=== PATIENT | female | born 1960 | race Caucasian/White ===

== ENCOUNTER 2016-12-19 10:50 | Emergency (ER) | payer OTHER ==
[~2016-12-19] VITALS: Ht 165.1 cm; Wt 108.9 kg
[~2016-12-19 10:50] MED LIST: CETI10TA22 PO; CRESTOR20 MG PO; ESTR0.5T PO; LANS30CA17 PO; LEVO137T3 PO; LOSA1TAB17 PO; MULT-208 PO; XOPENEX HFA15 GM IH
[2016-12-19 11:20] VITALS: BP 154/94
--- NOTE | 2016-12-19 12:02 | RAD ---
Exam performed: 2 views of the chest. Indication: cough, cold symptoms since last Sunday Date of Service:12/19/2016 1:39 PM . Comparison : Two-view chest from 10/02/16. Findings: PA and lateral radiographs of the chest reveal a normal cardiomediastinal contour. The lungs are clear. No pleural fluid is seen. There is scoliosis of the thoracic spine with leftward and cavity. Impression: No acute cardiopulmonary process seen.
--- NOTE | 2016-12-19 12:15 | PHYS DOC ---
Past Medical History Past Medical History: Asthma Additional Past Medical Histor: GREGORIO Past Surgical History: No Surgical History Alcohol Use: None Drug Use: None Adult General Chief Complaint Chief Complaint: MULTIPLE COMPLAINTS [facility] Patient is a 56 year old female who presents with with a week of nasal congestion, rhinorrhea, bilateral ear pressure, dry cough, chills, mild nausea, and intermittent watery diarrhea. She has been taking [id number] cough medicine and using a Neti pot without complete relief of her symptoms. She has been taking Tylenol. She has Xopenex inhaler that she has only used one time, she is otherwise taking inhaled corticosteroid as directed. She denies chest pain, abdominal pain, headache, sick contacts. Her biggest complaint is persistent dry cough. Review of Systems Review of Systems Constitutional: Denies measured fever [] Eyes: Denies change in visual acuity, redness, or eye pain [] HENT: Denies sore throat [] Respiratory: Denies shortness of breath [] Cardiovascular: No additional information not addressed in [facility] [] GI: Denies abdominal pain, vomiting, bloody stools [] : Denies dysuria or hematuria [] Musculoskeletal: Denies back pain or joint pain [] Integument: Denies rash or skin lesions [] Neurologic: Denies headache, focal weakness or sensory changes [] Endocrine: Denies polyuria or polydipsia [] Allergies Allergies Allergies Coded Allergies Type Severity Reaction Last Updated Verified aspirin Allergy Intermediate Hives 07/26/16 Yes Physical Exam Physical Exam Constitutional: Well developed, well nourished, no acute distress, non-toxic appearance. [] HENT: Normocephalic, atraumatic, bilateral TMs normal, oropharynx moist, no oral exudates, nose normal. [] Eyes: PERRLA, EOMI, conjunctiva normal, no discharge. [] Neck: Normal range of motion, no tenderness, supple, no stridor. [] Cardiovascular:Heart rate regular rhythm [] Lungs & Thorax: Bilateral breath sounds clear to auscultation. Intermittent bronchospastic cough [] Abdomen: Bowel sounds normal, soft, no tenderness. [] Skin: Warm, dry, no erythema, no rash. [] Back: No tenderness, no CVA tenderness. [] Extremities: No tenderness, ROM intact, no edema, no palpable cord. [] Neurologic: Alert and oriented X 3, normal motor function, normal sensory function, no focal deficits noted. [] Psychologic: Affect normal, judgement normal, mood normal. [] Current Patient Data Vital Signs Vital Signs Date Time Temp Pulse Resp B/P Pulse Ox O2 Delivery O2 Flow Rate FiO2 12/19/16 11:20 98.4 93 20 154/94 96 Room Air 98.4 Radiology/Procedures Radiology/Procedures Chest xray as interpreted by me with no acute cardiopulmonary disease process Course & Med Decision Making Course & Med Decision Making Pertinent Labs and Imaging studies reviewed. (See chart for details) Workup is unremarkable. Her symptoms are consistent with likely viral upper respiratory infection. She used personal Xopenex while in the department and her cough improved. Encouraged further use of inhaler to help control cough as well as use of honey. Return precautions given. She understands and agrees with plan. Dragon Disclaimer Dragon Disclaimer This electronic medical record was generated, in whole or in part, using a voice recognition dictation system. Departure Departure Impression: Primary Impression: Cough Disposition: HOME, SELF-CARE Condition: STABLE Referrals: ALIZA VILLEGAS MD (PCP) Patient Instructions: Asthma, Adult, [id number] Additional Instructions: Use your inhaler as needed for cough. Follow-up with your primary care doctor. Return for any concerns. Man ARAIZA MD Dec 19, 2016 12:15
== END 2016-12-19 12:20 | disposition home or self-care (01) ==
LOC: ER 10:50
DX: R05 Cough (principal); Z88.6 Allergy status to analgesic agent
CPT/HCPCS: 71020; 99284

== ENCOUNTER → 2017-03-21 | Outpatient (CLI) | payer OTHER ==
--- NOTE | 2017-03-21 16:42 | RAD ---
CT of the paranasal sinuses without contrast, 03/21/2017: History: Chronic sinusitis, asthma Noncontrast scans were obtained with multiplanar reconstructions produced. There is only mild mucosal thickening in the maxillary sinuses, right greater than left. There is slight associated narrowing of the ethmoid infundibulum of the right ostiomeatal complex. The left ethmoid infundibulum is widely patent. There is minimal mucosal thickening inferiorly in the right sphenoid sinus. The left sphenoid sinus, both frontal and both ethmoid sinuses are essentially clear. No free fluid is evident in the paranasal sinuses. No bony abnormality is detected. The orbital contents are unremarkable. IMPRESSION: 1. Mild mucosal thickening in both maxillary sinuses and the right sphenoid sinus. 2. The paranasal sinuses are otherwise unremarkable. PQRS Compliance Statement: One or more of the following individualized dose reduction techniques were utilized for this examination: 1. Automated exposure control 2. Adjustment of the mA and/or kV according to patient size 3. Use of iterative reconstruction technique
== END | disposition home or self-care (01) ==
LOC: CT 16:00
PROVIDERS: ATTEND Otolaryngology
DX: J32.9 Chronic sinusitis, unspecified (principal)
CPT/HCPCS: 70486

== ENCOUNTER → 2017-08-28 | Outpatient (CLI) | payer OTHER ==
[~2017-08-28] MED LIST changes: -LANS30CA17 PO; +LANS30CA66 PO; -LOSA1TAB17 PO; +LOSA1TAB22 PO
--- NOTE | 2017-08-28 16:39 | RAD ---
DATE: 08/28/17 EXAM: DIGITAL SCREEN BILAT W/CAD HISTORY: Routine screening COMPARISON: 06/05/16 This study was interpreted with the benefit of Computerized Aided Detection (CAD). TECHNIQUE: Routine CC and MLO views of both breasts are obtained FINDINGS: Breast Density: SCATTERED The breast parenchyma shows scattered fibroglandular densities. Breast parenchyma level B. . No suspicious clustered microcalcifications, focal asymmetric densities or masses are seen. Stable benign calcifications are present bilaterally IMPRESSION: Benign findings BI-RADS CATEGORY: 2 BENIGN FINDING(S) RECOMMENDED FOLLOW-UP: 12M 12 MONTH FOLLOW-UP PQRS compliance statement: Patient information was entered into a reminder system with a target due date for the next mammogram. Mammography is a sensitive method for finding small breast cancers, but it does not detect them all and is not a substitute for careful clinical examination. A negative mammogram does not negate a clinically suspicious finding and should not result in delay in biopsying a clinically suspicious abnormality. "Our facility is accredited by the [employer] Mammography Program."
== END | disposition home or self-care (01) ==
LOC: MAMMO 15:59
PROVIDERS: ATTEND Family Medicine
DX: Z12.31 Encounter for screening mammogram for malignant neoplasm of breast (principal)
CPT/HCPCS: G0202; 77067

== ENCOUNTER → 2018-02-18 | Outpatient (CLI) | payer OTHER ==
[2018-02-18 08:47] LABS: ADD MAN DIFF? NO
[2018-02-18 08:52] LABS: BASO # 0.1 x10^3/uL (0.0-0.2); BASO % 1 % (0-3); EOS # 0.1 x10^3/uL (0.0-0.7); EOS % 2 % (0-3); HEMATOCRIT 44.5 % (36.0-47.0); HEMOGLOBIN 14.8 g/dL (12.0-15.5); LYMPH # 2.4 x10^3/uL (1.0-4.8); LYMPH % 37 % (24-48); MEAN CORPUSCULAR HEMOGLOBIN 30 pg (25-35); MEAN CORPUSCULAR HGB CONC 33 g/dL (31-37); MEAN CORPUSCULAR VOLUME 89 fL (79-100); MONO # 0.5 x10^3/uL (0.0-1.1); MONO % 8 % (0-9); NEUT # 3.5 x10^3uL (1.8-7.7); NEUT % 53 % (31-73); PLATELET COUNT 195 x10^3/uL (140-400); RED BLOOD COUNT 4.98 x10^6/uL (3.50-5.40); RED CELL DISTRIBUTION WIDTH 14.9 % (11.5-14.5); WHITE BLOOD COUNT 6.6 x10^3/uL (4.0-11.0)
[2018-02-18 09:10] LABS: ALBUMIN 3.7 g/dL (3.4-5.0); ALK PHOS 83 U/L (46-116); ALT (SGPT) 29 U/L (14-59); ANION GAP 7 (6-14); AST (SGOT) 19 U/L (15-37); BLOOD UREA NITROGEN 13 mg/dL (7-20); BUN/CREATININE RATIO 14 (6-20); CALCIUM 9.9 mg/dL (8.5-10.1); CARBON DIOXIDE 31 mmol/L (21-32); CHLORIDE 106 mmol/L (98-107); CHOLESTEROL 170 mg/dL (0-200); CREATININE 0.9 mg/dL (0.6-1.0); GFR 64.1; GLUCOSE 93 mg/dL (70-99); HDLC 68 mg/dL (40-60); LDLC 80 mg/dL (0-100); MAGNESIUM 2.2 mg/dL (1.8-2.4); NON-HDL CHOLESTEROL 102 mg/dL (0-129); POTASSIUM 3.9 mmol/L (3.5-5.1); SODIUM 144 mmol/L (136-145); TOTAL BILIRUBIN 0.5 mg/dL (0.2-1.0); TOTAL PROTEIN 7.3 g/dL (6.4-8.2); TRIGLYCERIDES 111 mg/dL (0-150); VLDLC 22 mg/dL (0-40)
[2018-02-18 09:11] LABS: PREALBUMIN 27.3 mg/dL (16.0-42.0)
[2018-02-18 09:12] LABS: IRON,SERUM 74 ug/dL (50-170)
[2018-02-18 09:12] LABS: CHOLESTEROL/HDL RATIO 2.5
[2018-02-18 09:21] LABS: THYROID STIM HORMONE (TSH) 6.074 uIU/mL (0.358-3.74)
[2018-02-18 09:21] LABS: FREE T4 1.07 ng/dL (0.76-1.46)
[2018-02-18 09:46] LABS: FOLATE 20.57 ng/ml (3.2-20.0)
[2018-02-18 09:46] LABS: VITAMIN-B12 423 pg/mL (247-911)
[2018-02-19 03:14] LABS: HEMOGLOBIN A1C 5.4 % (4.8-5.6)
== END | disposition home or self-care (01) ==
LOC: LAB 08:23
DX: I10 Essential (primary) hypertension (principal); E78.5 Hyperlipidemia, unspecified; E03.9 Hypothyroidism, unspecified; G47.33 Obstructive sleep apnea (adult) (pediatric); Z98.890 Other specified postprocedural states
CPT/HCPCS: 36415; 80053; 80061; 82306; 82607; 82746; 83036; 83540; 83735; 84134; 84439; 84443; 85025

== ENCOUNTER → 2018-04-22 | Outpatient (CLI) | payer OTHER ==
[2018-04-22 08:32] LABS: FREE T4 0.95 ng/dL (0.76-1.46)
[2018-04-22 08:32] LABS: THYROID STIM HORMONE (TSH) 3.338 uIU/mL (0.358-3.74)
== END | disposition home or self-care (01) ==
LOC: LAB 07:41
DX: E03.9 Hypothyroidism, unspecified (principal); E78.5 Hyperlipidemia, unspecified; I10 Essential (primary) hypertension; J32.9 Chronic sinusitis, unspecified; K21.9 Gastro-esophageal reflux disease without esophagitis
CPT/HCPCS: 36415; 84439; 84443

== ENCOUNTER 2018-08-08 16:35 | Emergency (ER) | payer OTHER | END 2018-08-08 17:04 | disposition left against medical advice (07) | LOC: ER 16:35 | DX: R42 Dizziness and giddiness (principal); Z53.21 Procedure and treatment not carried out due to patient leaving prior to being seen by health care provider | CPT/HCPCS: 82962 ==

== ENCOUNTER → 2018-09-20 | Outpatient (CLI) | payer OTHER ==
--- NOTE | 2018-09-20 15:50 | RAD ---
DATE: 09/20/2018 EXAM: MAMMO BRANDEN SCREENING BILATERAL HISTORY: Routine screening COMPARISON: 08/28/2017 This study was interpreted with the benefit of Computerized Aided Detection (CAD). Breast Density: SCATTERED The breast parenchyma shows scattered fibroglandular densities. Breast parenchyma level B. FINDINGS: 2-D and 3-D tomosynthesis imaging was performed in CC and MLO projections. No new or enlarging breast densities are seen. Scattered microcalcifications in both breasts appear stable. IMPRESSION: There is no mammographic evidence of malignancy in either breast. BI-RADS CATEGORY: 2 BENIGN FINDING(S) RECOMMENDED FOLLOW-UP: 12M 12 MONTH FOLLOW-UP PQRS compliance statement: Patient information was entered into a reminder system with a target due date for the next mammogram. Mammography is a sensitive method for finding small breast cancers, but it does not detect them all and is not a substitute for careful clinical examination. A negative mammogram does not negate a clinically suspicious finding and should not result in delay in biopsying a clinically suspicious abnormality. "Our facility is accredited by the [employer] Mammography [employer]."
== END | disposition home or self-care (01) ==
LOC: MAMMO 13:57
PROVIDERS: ATTEND Hospitalist
DX: Z12.31 Encounter for screening mammogram for malignant neoplasm of breast (principal)
CPT/HCPCS: 77063; 77067

== ENCOUNTER → 2019-01-03 | Outpatient (CLI) | payer OTHER ==
[2019-01-03 07:45] LABS: BASO % 1 % (0-3); EOS # 0.1 x10^3/uL (0.0-0.7); EOS % 2 % (0-3); HEMATOCRIT 43.1 % (36.0-47.0); HEMOGLOBIN 13.9 g/dL (12.0-15.5); LYMPH # 1.8 x10^3/uL (1.0-4.8); LYMPH % 35 % (24-48); MEAN CORPUSCULAR HEMOGLOBIN 29 pg (25-35); MEAN CORPUSCULAR HGB CONC 32 g/dL (31-37); MEAN CORPUSCULAR VOLUME 89 fL (79-100); MONO # 0.5 x10^3/uL (0.0-1.1); MONO % 10 % (0-9); NEUT # 2.6 x10^3uL (1.8-7.7); NEUT % 52 % (31-73); PLATELET COUNT 197 x10^3/uL (140-400); RED BLOOD COUNT 4.85 x10^6/uL (3.50-5.40); RED CELL DISTRIBUTION WIDTH 14.1 % (11.5-14.5)
[2019-01-03 08:10] LABS: ALBUMIN 3.6 g/dL (3.4-5.0); ALBUMIN/GLOBULIN RATIO 1.1 (1.0-1.7); CALCIUM 9.2 mg/dL (8.5-10.1); CREATININE 0.8 mg/dL (0.6-1.0); GFR 73.2; TOTAL BILIRUBIN 0.4 mg/dL (0.2-1.0)
[2019-01-03 08:12] LABS: CHOLESTEROL/HDL RATIO 3.4
[2019-01-03 08:15] LABS: FREE T4 1.1 ng/dL (0.76-1.46); THYROID STIM HORMONE (TSH) 0.783 uIU/mL (0.358-3.74)
[2019-01-03 22:09] LABS: HEMOGLOBIN A1C 5.5 % (4.8-5.6)
== END | disposition home or self-care (01) ==
LOC: LAB 07:15
PROVIDERS: ATTEND Hospitalist
DX: E03.9 Hypothyroidism, unspecified (principal); I10 Essential (primary) hypertension; E78.5 Hyperlipidemia, unspecified; E55.9 Vitamin D deficiency, unspecified; Z98.890 Other specified postprocedural states
CPT/HCPCS: 36415; 80053; 80061; 82306; 82607; 83036; 84439; 84443; 85025

== ENCOUNTER 2019-04-09 23:31 | Emergency (ER) | payer OTHER ==
[~2019-04-09] VITALS: Ht 165.1 cm; Wt 74.8 kg
[2019-04-10 00:13] LABS: BASO % 1 % (0-3); EOS # 0.1 x10^3/uL (0.0-0.7); EOS % 2 % (0-3); HEMATOCRIT 42.1 % (36.0-47.0); HEMOGLOBIN 14.1 g/dL (12.0-15.5); LYMPH # 1.9 x10^3/uL (1.0-4.8); LYMPH % 32 % (24-48); MEAN CORPUSCULAR HEMOGLOBIN 30 pg (25-35); MEAN CORPUSCULAR HGB CONC 33 g/dL (31-37); MEAN CORPUSCULAR VOLUME 90 fL (79-100); MONO # 0.6 x10^3/uL (0.0-1.1); MONO % 11 % (0-9); NEUT # 3.4 x10^3uL (1.8-7.7); NEUT % 55 % (31-73); PLATELET COUNT 219 x10^3/uL (140-400); RED BLOOD COUNT 4.69 x10^6/uL (3.50-5.40); RED CELL DISTRIBUTION WIDTH 13.9 % (11.5-14.5); WHITE BLOOD COUNT 6.1 x10^3/uL (4.0-11.0)
[2019-04-10] MEDS: ONDANSETRON PF 4 MG/2 ML VIAL. IV ONE (00:16)
[2019-04-10] MEDS: IV NORMAL SALINE 1000ML BAG 1,000 ML IV SCH (00:16)
[2019-04-10] MEDS: KETOROLAC 15 MG/ML VIAL. IV ONE (00:17)
[2019-04-10 00:21] LABS: CALCIUM 9.3 mg/dL (8.5-10.1); CREATININE 0.7 mg/dL (0.6-1.0); GFR 85.4; POTASSIUM 4.6 mmol/L (3.5-5.1)
[2019-04-10 00:27] LABS: ALBUMIN 3.8 g/dL (3.4-5.0); ALBUMIN/GLOBULIN RATIO 1.3 (1.0-1.7); TOTAL BILIRUBIN 0.3 mg/dL (0.2-1.0); TOTAL PROTEIN 6.7 g/dL (6.4-8.2)
--- NOTE | 2019-04-10 01:21 | RAD ---
Ultrasound of the abdomen limited. HISTORY: Right upper quadrant pain Ultrasound was used to evaluate the gallbladder, liver and right upper quadrant. Mid body of the pancreas appear normal, portions of the head and tail of the pancreas were obscured by bowel gas. Vena cava at the liver is unremarkable. Aorta is normal in appearance. Liver is within normal limits in size and appearance. Gallbladder was normal without gallstones or gallbladder wall thickening. Right kidney was 9.8 cm in length without a mass or hydronephrosis. Common duct was normal measuring 4 mm. IMPRESSION: 1. Limited evaluation of pancreas. 2. No gallstones noted. 3. Bile duct normal in size. 4. No focal liver lesion noted. Electronically signed by: Ozzie Arriaga MD (04/10/2019 1:18 AM) [facility]
[2019-04-10] MEDS ORDERED: TRAM50TA PO (02:24)
[2019-04-10] MEDS ORDERED: ONDA4TAB7 PO (02:24)
--- NOTE | 2019-04-10 02:24 | PHYS DOC ---
Past Medical History Past Medical History: Asthma Additional Past Medical Histor: GREGORIO Past Surgical History: No Surgical History Alcohol Use: None Drug Use: None Adult General Chief Complaint Chief Complaint: ABDOMINAL PAIN HPI HPI Patient is a 58-year-old female who presents with complaint of epigastric and right upper abdominal pain with nausea that started a few hours ago. Patient states that she was eating some chips and salsa and pain had developed shortly thereafter. She states that she had a similar episode a couple of weeks ago when she had eaten some ice cream at the hospital. She states that the pain radiates straight through to her back. She rates pain at a 7 out of 10. She states that nothing is improving the pain. She states the pain is worsened with movement and with palpation of the area.[] Review of Systems Review of Systems Constitutional: Denies fever or chills [] Respiratory: Denies cough or shortness of breath [] Cardiovascular: No additional information not addressed in HPI [] GI: Complains of abdominal pain with nausea. Denies vomiting or diarrhea [] Musculoskeletal: Mcclure of right-sided back pain [] All other systems were reviewed and found to be within normal limits, except as documented in this note. Current Medications Current Medications Current Medications Medications (Trade) Dose Ordered Sig/Johnathon Start Time Stop Time Status Last Admin Dose Admin Ketorolac Tromethamine (Toradol 15mg Vial) 15 mg 1X ONCE 04/10/19 00:30 04/10/19 00:31 DC 04/10/19 00:17 15 MG Ondansetron HCl (Zofran) 4 mg 1X ONCE 04/10/19 00:30 04/10/19 00:31 DC 04/10/19 00:16 4 MG Sodium Chloride 1,000 ml @ 100 mls/hr Q10H 04/10/19 00:30 04/10/19 02:39 DC 04/10/19 00:16 100 MLS/HR Tramadol HCl (Ultram) 50 mg 1X ONCE 04/10/19 03:00 04/10/19 03:00 DC Allergies Allergies Allergies Coded Allergies Type Severity Reaction Last Updated Verified aspirin Allergy Intermediate Hives 07/26/16 Yes Physical Exam Physical Exam Constitutional: Well developed, well nourished, no acute distress, non-toxic appearance. [] HENT: Normocephalic, atraumatic, bilateral external ears normal, oropharynx moist, no oral exudates, nose normal. [] Eyes: PERRLA, EOMI, conjunctiva normal, no discharge. [] Neck: Normal range of motion, no tenderness, supple, no stridor. [] Cardiovascular: Regular rate and rhythm[] Lungs & Thorax: Bilateral breath sounds clear to auscultation [] Abdomen: Bowel sounds normal, soft, with moderate right upper quadrant tenderness. [] Skin: Warm, dry, no erythema, no rash. [] Extremities: No tenderness, no cyanosis, no clubbing, ROM intact. [] Neurologic: Alert and oriented X 3, normal motor function, normal sensory function, no focal deficits noted. [] Current Patient Data Vital Signs Vital Signs Date Time Temp Pulse Resp B/P (MAP) Pulse Ox O2 Delivery O2 Flow Rate FiO2 04/10/19 02:38 77 20 152/74 (100) 98 04/09/19 23:45 97.9 Nasal Cannula 97.9 Lab Values Laboratory Tests Test 04/10/19 00:07 White Blood Count 6.1 x10^3/uL (4.0-11.0) Red Blood Count 4.69 x10^6/uL (3.50-5.40) Hemoglobin 14.1 g/dL (12.0-15.5) Hematocrit 42.1 % (36.0-47.0) Mean Corpuscular Volume 90 fL (79-100) Mean Corpuscular Hemoglobin 30 pg (25-35) Mean Corpuscular Hemoglobin Concent 33 g/dL (31-37) Red Cell Distribution Width 13.9 % (11.5-14.5) Platelet Count 219 x10^3/uL (140-400) Neutrophils (%) (Auto) 55 % (31-73) Lymphocytes (%) (Auto) 32 % (24-48) Monocytes (%) (Auto) 11 % (0-9) H Eosinophils (%) (Auto) 2 % (0-3) Basophils (%) (Auto) 1 % (0-3) Neutrophils # (Auto) 3.4 x10^3uL (1.8-7.7) Lymphocytes # (Auto) 1.9 x10^3/uL (1.0-4.8) Monocytes # (Auto) 0.6 x10^3/uL (0.0-1.1) Eosinophils # (Auto) 0.1 x10^3/uL (0.0-0.7) Basophils # (Auto) 0.0 x10^3/uL (0.0-0.2) Sodium Level 144 mmol/L (136-145) Potassium Level 4.6 mmol/L (3.5-5.1) Chloride Level 107 mmol/L (98-107) Carbon Dioxide Level 25 mmol/L (21-32) Anion Gap 12 (6-14) Blood Urea Nitrogen 20 mg/dL (7-20) Creatinine 0.7 mg/dL (0.6-1.0) Estimated GFR (Cockcroft-Gault) 85.4 BUN/Creatinine Ratio 29 (6-20) H Glucose Level 121 mg/dL (70-99) H Calcium Level 9.3 mg/dL (8.5-10.1) Total Bilirubin 0.3 mg/dL (0.2-1.0) Aspartate Amino Transferase (AST) 22 U/L (15-37) Alanine Aminotransferase (ALT) 21 U/L (14-59) Alkaline Phosphatase 80 U/L (46-116) Total Protein 6.7 g/dL (6.4-8.2) Albumin 3.8 g/dL (3.4-5.0) Albumin/Globulin Ratio 1.3 (1.0-1.7) Lipase 161 U/L (73-393) Laboratory Tests 04/10/19 00:07 Laboratory Tests 04/10/19 00:07 EKG EKG [] Radiology/Procedures Radiology/Procedures [] Impressions: PROCEDURE: ABDOMEN LTD Ultrasound of the abdomen limited. HISTORY: Right upper quadrant pain Ultrasound was used to evaluate the gallbladder, liver and right upper quadrant. Mid body of the pancreas appear normal, portions of the head and tail of the pancreas were obscured by bowel gas. Vena cava at the liver is unremarkable. Aorta is normal in appearance. Liver is within normal limits in size and appearance. Gallbladder was normal without gallstones or gallbladder wall thickening. Right kidney was 9.8 cm in length without a mass or hydronephrosis. Common duct was normal measuring 4 mm. IMPRESSION: 1. Limited evaluation of pancreas. 2. No gallstones noted. 3. Bile duct normal in size. 4. No focal liver lesion noted. Electronically signed by: Ozzie Arriaga MD (04/10/2019 1:18 AM) [facility] Course & Med Decision Making Course & Med Decision Making Pertinent Labs and Imaging studies reviewed. (See chart for details) [] Dragon Disclaimer Dragon Disclaimer This electronic medical record was generated, in whole or in part, using a voice recognition dictation system. Departure Departure Impression: Primary Impression: RUQ abdominal pain Disposition: HOME, SELF-CARE Condition: STABLE Referrals: HAMIDA THOMAS MD (PCP) Patient Instructions: Abdominal Pain Scripts Tramadol Hcl (TRAMADOL HCL) 50 Mg Tablet 50 MG PO Q6HRS PRN for PAIN, #10 TAB Prov: ROSETTE GOODE Jr. DO 04/10/19 Ondansetron Hcl (ZOFRAN) 4 Mg Tablet 4 MG PO PRN TID PRN for NAUSEA, #15 nausea/vomiting Prov: ROSETTE GOODE Jr. DO 04/10/19 ROSETTE GOODE Jr. DO April 10, 2019 02:24
[2019-04-10 02:38] VITALS: BP 152/74
[2019-04-10] MEDS ORDERED: traMADol 50 MG TABLET PO ONE (03:00)
== END 2019-04-10 02:39 | disposition home or self-care (01) ==
LOC: ER 23:31
DX: R10.11 Right upper quadrant pain (principal); R11.0 Nausea; M54.9 Dorsalgia, unspecified; J45.909 Unspecified asthma, uncomplicated; G47.33 Obstructive sleep apnea (adult) (pediatric); Z88.6 Allergy status to analgesic agent
CPT/HCPCS: 36415; 76705; 80053; 83690; 85025; 96374; 96375; 99285; J1885; J2405; J7030

== ENCOUNTER → 2019-10-02 | Outpatient (CLI) | payer OTHER ==
[~2019-10-02] MED LIST changes: +ONDA4TAB7 PO; +TRAM50TA PO
--- NOTE | 2019-10-03 15:36 | RAD ---
DATE: 10/02/2019 EXAM: MAMMO BRANDEN SCREENING BILATERAL HISTORY: Routine screening COMPARISON: 08/28/2017, 06/05/2016, 09/20/2018 mammographic exams This study was interpreted with the benefit of Computerized Aided Detection (CAD). Breast Density: HETERO The breast parenchyma is heterogenously dense, which could reduce sensitivity of mammography. Breast parenchyma level C. FINDINGS: Benign calcifications are present. No suspicious calcifications or distortion. IMPRESSION: Stable BI-RADS CATEGORY: 2 BENIGN FINDING(S) RECOMMENDED FOLLOW-UP: 12M 12 MONTH FOLLOW-UP PQRS compliance statement: Patient information was entered into a reminder system with a target due date for the next mammogram. Mammography is a sensitive method for finding small breast cancers, but it does not detect them all and is not a substitute for careful clinical examination. A negative mammogram does not negate a clinically suspicious finding and should not result in delay in biopsying a clinically suspicious abnormality. "Our facility is accredited by the [employer] Mammography Program."
== END | disposition home or self-care (01) ==
LOC: MAMMO 14:24
PROVIDERS: ATTEND Hospitalist
DX: Z12.31 Encounter for screening mammogram for malignant neoplasm of breast (principal); N64.89 Other specified disorders of breast
CPT/HCPCS: 77063; 77067

== ENCOUNTER 2020-04-18 09:48 | Emergency (ER) | payer OTHER ==
[~2020-04-18] VITALS: Ht 162.6 cm; Wt 70.4 kg
[~2020-04-18 09:48] MED LIST changes: +ALBU2.5V8 IH; -CETI10TA22 PO; +CETI10TA24 PO; +DOXY100T PO
[2020-04-18 09:55] VITALS: BP 150/85
[2020-04-18] MEDS ORDERED: PRED20TA PO (10:08)
--- NOTE | 2020-04-18 10:08 | PHYS DOC ---
Past Medical History Past Medical History: Asthma, Bronchitis, Hypothyroid Additional Past Medical Histor: GREGORIO Past Surgical History: Cervical Fusion, Other Smoking Status: Never Smoker Alcohol Use: None Drug Use: None General Adult EDM: Chief Complaint: SKIN RASH/ABSCESS HPI: HPI: Patient is a 59 year old female presenting to the ED with a chief complaint of possible insect bite. Patient states that she had the symptoms for the last 2 to 3 days. She has an area of irritation and redness just lateral to her left eye. She states that she used topical cortisone cream as well as Benadryl but the symptoms are not resolving. Patient states that she has a to attend tomorrow and so she cannot see her PCP. Patient denies fever, chills, nausea, vomiting, shortness of breath, chest pain. Review of Systems: Review of Systems: Constitutional: Denies fever or chills. [] Respiratory: Denies cough or shortness of breath. [] Cardiovascular: Denies chest pain Integument: Rash present on the face Heart Score: Risk Factors: Risk Factors: DM, Current or recent (<one month) smoker, HTN, HLP, family history of CAD, obesity. Risk Scores: Score 0 - 3: 2.5% MACE over next 6 weeks - Discharge Home Score 4 - 6: 20.3% MACE over next 6 weeks - Admit for Clinical Observation Score 7 - 10: 72.7% MACE over next 6 weeks - Early Invasive Strategies Allergies: Allergies: Allergies Coded Allergies Type Severity Reaction Last Updated Verified aspirin Allergy Intermediate Hives 07/26/16 Yes Physical Exam: PE: Constitutional: Well developed, well nourished, no acute distress, non-toxic appearance. [] HENT: Normocephalic, atraumatic Eyes: EOMI Neck: Normal range of motion Respiratory: No respiratory distress Extremities: ROM intact Skin: Small dime size erythema area present lateral to the left eye. There is mild swelling in the left infraorbital region. Neurologic: Alert and oriented X 3 EKG: EKG: [] Radiology/Procedures: Radiology/Procedures: [] Course & Med Decision Making: Course & Med Decision Making Most likely insect bite Patient will be treated with oral steroids. Discussed plan of care with patient. Patient is instructed to follow up with PCP in one to 2 days. Appropriate discharge instructions given to patient to return to the ED or to seek immediate medical evaluation. Patient is instructed to return to the ED if symptoms worsen or if any concerns. Dragon Disclaimer: Dragon Disclaimer: This electronic medical record was generated, in whole or in part, using a voice recognition dictation system. Departure Departure Impression: Primary Impression: Insect bite Additional Impression: Dermatitis Disposition: HOME, SELF-CARE Condition: STABLE Referrals: HAMIDA THOMAS MD (PCP) Patient Instructions: Insect Bite Additional Instructions: Please return to the ED if symptoms worsen or if any concerns. Please follow-up with your PCP in 1 to 2 days. Scripts Prednisone (PREDNISONE) 20 Mg Tablet 2 TAB PO DAILY for 5 Days, #10 TAB Prov: KENNY LOPEZ DO 04/18/20 KENNY LOPEZ DO April 18, 2020 10:08
== END 2020-04-18 10:25 | disposition home or self-care (01) ==
LOC: ER 09:48
DX: S00.262A Insect bite (nonvenomous) of left eyelid and periocular area, initial encounter (principal); L30.9 Dermatitis, unspecified; J45.909 Unspecified asthma, uncomplicated; E03.9 Hypothyroidism, unspecified; Z88.6 Allergy status to analgesic agent; W57.XXXA Bitten or stung by nonvenomous insect and other nonvenomous arthropods, initial encounter; Y93.89 Activity, other specified; Y92.89 Other specified places as the place of occurrence of the external cause; Y99.8 Other external cause status
CPT/HCPCS: 99283

== ENCOUNTER → 2020-07-11 | Outpatient (CLI) | payer OTHER ==
[~2020-07-11] MED LIST changes: +PRED20TA PO
== END | disposition home or self-care (01) ==
LOC: LAB 19:13
PROVIDERS: ATTEND Internal Medicine Pulmonary Disease
DX: J45.909 Unspecified asthma, uncomplicated (principal); R50.9 Fever, unspecified; R06.02 Shortness of breath; R51 Headache; Z20.828 Contact with and (suspected) exposure to other viral communicable diseases
CPT/HCPCS: 87426; U0003

== ENCOUNTER → 2020-09-28 | Outpatient (CLI) | payer OTHER ==
[~2020-09-28] MED LIST changes: -CETI10TA24 PO; +CETI10TA74 PO
--- NOTE | 2020-09-28 16:21 | RAD ---
DATE: 09/28/2020 2:03 PM EXAM: MAMMO BRANDEN SCREENING BILATERAL HISTORY: Screening COMPARISON: 10/02/2019, 09/20/2018 Bilateral CC and MLO views of the breasts were performed. Bilateral breast tomosynthesis was performed in CC and MLO projections. This study was interpreted with the benefit of Computerized Aided Detection (CAD). FINDINGS: Breast Density: HETERO The breast parenchyma Is heterogeneously dense, which could reduce sensitivity of mammography. Breast parenchyma level C Negative left mammogram. Calcifications in the anterior superior right breast cannot be confirmed stable and need additional imaging with magnification views in the CC and true lateral projections with possible correlate of ultrasound given dense breast tissue. IMPRESSION: Right breast indeterminate microcalcifications, findings for which additional imaging is advised. BI-RADS CATEGORY: 0 INCOMPLETE: NEEDS ADDITIONAL IMAGING EVALUATION AND/OR PRIOR MAMMOGRAMS FOR COMPARISON. RECOMMENDED FOLLOW-UP: ADD ADDITIONAL IMAGING The patient will be contacted to return for additional imaging and a supplemental report will follow. PQRS compliance statement: Patient information was entered into a reminder system with a target due date for the next mammogram. Mammography is a sensitive method for finding small breast cancers, but it does not detect them all and is not a substitute for careful clinical examination. A negative mammogram does not negate a clinically suspicious finding and should not result in delay in biopsying a clinically suspicious abnormality. "Our facility is accredited by the [employer] Mammography Program."
== END ==
LOC: MAMMO 13:59
PROVIDERS: ATTEND Obstetrics & Gynecology
DX: Z12.31 Encounter for screening mammogram for malignant neoplasm of breast (principal); N64.89 Other specified disorders of breast
CPT/HCPCS: 77063; 77067

== ENCOUNTER → 2020-10-05 | Outpatient (CLI) | payer OTHER ==
--- NOTE | 2020-10-05 15:04 | RAD ---
DATE: 10/05/2020 1:41 PM EXAM: DIGITAL DIAGNOSTIC RT, BREAST RIGHT HISTORY: Screening recall for right breast calcifications COMPARISON: 09/28/2020 bilateral mammogram Magnification views of the right breast were obtained in the CC and MLO projections in addition to a full-field right ML view. Targeted ultrasound of the lateral right breast was also pursued. FINDINGS: Breast Density: HETERO The breast parenchyma Is heterogeneously dense, which could reduce sensitivity of mammography. Breast parenchyma level C Additional views of the right breast including magnification views show that the calcifications in the upper outer quadrant recalled from screening are mostly scattered clusters of round and punctate calcifications, some of which layer like milk of calcium, generally benign in appearance. However, one cluster of calcifications in the posterior upper outer quadrant appears associated with an asymmetry and these calcifications vary slightly in size, shape and density. These are considered mildly suspicious and stereotactic biopsy is recommended. Targeted ultrasound of the upper-outer quadrant right breast focused primarily at the 10:00 position 8.5 cm from the nipple revealed dense fibroglandular tissue with no suspicious sonographic findings. Benign right axillary lymph nodes were also noted. IMPRESSION: Suspicious right breast calcifications posteriorly and laterally. Biopsy recommended. BI-RADS CATEGORY: 4 SUSPICIOUS ABNORMALITY- BIOPSY SHOULD BE CONSIDERED RECOMMENDED FOLLOW-UP: BIO BIOPSY RECOMMENDED Discussed with patient prior to her discharge from the imaging suite. Also discussed with Dr. Edwards by telephone at 2:56 PM on 10/05/2020 PQRS compliance statement: Patient information was entered into a reminder system with a target due date for the next mammogram. Mammography is a sensitive method for finding small breast cancers, but it does not detect them all and is not a substitute for careful clinical examination. A negative mammogram does not negate a clinically suspicious finding and should not result in delay in biopsying a clinically suspicious abnormality. "Our facility is accredited by the [employer] Mammography Program."
== END ==
LOC: MAMMO 13:41
PROVIDERS: ATTEND Obstetrics & Gynecology
DX: R92.2 Inconclusive mammogram (principal)
CPT/HCPCS: 76641; 77065

== ENCOUNTER → 2020-11-04 | Outpatient (CLI) | payer OTHER ==
[~2020-11-04] MED LIST changes: +LIDOCAINE 2%/EPI 1:100,000 20 ML VIAL. INJ ONE
--- NOTE | 2020-11-04 18:05 | RAD ---
ADDENDUM #1 Pathology addendum: The specimens of the stereotactic biopsy consist of fibrocystic changes with a microcalcifications pr esent. No cytologic atypia or malignancy is seen according to the pathology report. Findings are conc ordant with imaging. Six-month follow-up diagnostic mammographic exam of the right breast is recommen ded. Electronically signed by: Woody Perea MD (11/11/2020 6:26 PM) [facility] Examination: MG DIAGNOSTICUNILAT MAMMO, MG STERO NEEDLE LOC BRST RT History: Reason: MICROCALCIFICATIONS, POST BIOPSY Comparison/Correlation: 10/05/2020 right unilateral diagnostic mammogram, 09/28/2020 screening mammog melony TECHNIQUE AND FINDINGS: The procedure and its risks and benefits were discussed with the patient. Ris ks discussed included, but were not limited to, pain, infection, bleeding and need for repeat biopsy. The patient provided verbal and written consent. The patient was placed in an upright unit and the right breast was placed in CC compression. Images w ere obtained and the lesion of concern was localized using stereotaxis. The skin overlying this regio n was then sterilely prepped and infiltrated with a 8 cc 2 % lidocaine for local anesthesia. A small skin incision was made and the biopsy device was advanced and appropriate positioning was confirmed w ith additional images. Subsequently, 6 core biopsy samples were obtained with vacuum assistance. A plain radiograph of the s pecimen was obtained, demonstrating inclusion of the lesion of interest in the calcifications. Then, a post-biospy clip was advanced to the site of biopsy using the same guidance technique. A sterile b andage was placed, and the patient was transferred to the mammography suite for craniocaudal and medi olateral oblique views. The post-biopsy mammogram demonstrates immediate post-biospy changes and a biopsy clip in expected po sition. Calcifications previously seen are no longer evident on the postbiopsy image. The patient silvina erated the procedure without difficulty and was discharged to home in stable condition with post-bios py care instructions. IMPRESSION: 1. Successful stereotactic biospy of right breast and post-biopsy clip placement. Please refer to the separate report submitted by the Department of Pathology for specimen findings. 2. Follow up mammography is recommended following resolution of immediate post-biospy changes based on pathology findings and clinical suspicion. Electronically signed by: Woody Perea MD (11/04/2020 6:03 PM) [facility]
--- NOTE | 2020-11-09 12:07 | PATHOLOGY ---
[facility] Accession Number: [id number] . 01 Material submitted: . breast - RIGHT BREAST TISSUE. Modifiers: right . 01 Clinical history: . RIGHT BREAST CALCIFICATIONS . 02 Diagnosis: "Right breast tissue", needle biopsy: - Benign breast with fibrocystic changes including stromal fibrosis, cyst formation, cystic apocrine metaplasia, usual duct hyperplasia and adenosis with microcalcifications present; no cytologic atypia or malignancy seen. (CLW:[facility] 11/08/2020) [facility] 11/08/2020 1507 Local . 02 Comment: The case is co-reviewed with Dr. Thomas Castillo. Clinical and radiographic correlation is recommended. (CLW:[facility] 11/08/2020) . 02 Diagnosis provided by: . Selam Alvarez MD, Pathologist NPI- [id number] . 03 Electronically signed: . Selam Alvarez MD, Pathologist NPI- [id number] . 01 Gross description: . The specimen is received in formalin, labeled "Francia Deleon, right breast". Received is a plastic cassette containing multiple needle cores of fibrofatty tissue measuring 2.5 x 2.0 x 0.6 cm in aggregate dimensions. The specimen is submitted entirely in cassettes A1 through A3. The cold ischemic time is 10 minutes. The total formalin fixation time is 29 hours and 15 minutes. ([facility]; 11/05/2020) [facility]/QA 11/08/2020 1505 Local . 02 Pathologist provided ICD-10: N60.11, N60.31, N60.01, N60.81, N62, N60.21 . 02 CPT . 315679 Specimen Comment: A courtesy copy of this report has been sent to [phone], [phone] Specimen Comment: [id number], Specimen Comment: Report sent to ,DR CHU / DR THOMAS Performed at: 01 [facility] [address] [id number] MD Thomas Castillo MD Phone: [phone] Performed at: 02 [facility] [address] [id number] MD Rodriguez Varela MD Phone: [phone] Performed at: 03 [facility] [address] [place], [place] [id number] MD Raman Huntley MD Phone: [phone]
== END | disposition home or self-care (01) ==
LOC: MAMMO 13:45
PROVIDERS: ATTEND Surgery
DX: R92.0 Mammographic microcalcification found on diagnostic imaging of breast (principal); N63.10 Unspecified lump in the right breast, unspecified quadrant; N60.21 Fibroadenosis of right breast; N60.81 Other benign mammary dysplasias of right breast; Z88.8 Allergy status to other drugs, medicaments and biological substances
CPT/HCPCS: 19081; 77065; 88305; C1713; J3490; 19085; 77022

== ENCOUNTER → 2020-12-16 | Day surgery (SDC) | payer OTHER ==
[~2020-12-16] MED LIST changes: -LIDOCAINE 2%/EPI 1:100,000 20 ML VIAL. INJ ONE
[2020-12-16 08:38] LABS: BASO % 1 % (0-3); EOS # 0.1 x10^3/uL (0.0-0.7); EOS % 2 % (0-3); HEMATOCRIT 43.1 % (36.0-47.0); HEMOGLOBIN 14.1 g/dL (12.0-15.5); LYMPH # 1.6 x10^3/uL (1.0-4.8); LYMPH % 33 % (24-48); MEAN CORPUSCULAR HEMOGLOBIN 29 pg (25-35); MEAN CORPUSCULAR HGB CONC 33 g/dL (31-37); MEAN CORPUSCULAR VOLUME 88 fL (79-100); MONO # 0.4 x10^3/uL (0.0-1.1); MONO % 9 % (0-9); NEUT # 2.6 x10^3/uL (1.8-7.7); NEUT % 55 % (31-73); PLATELET COUNT 189 x10^3/uL (140-400); RED BLOOD COUNT 4.92 x10^6/uL (3.50-5.40); RED CELL DISTRIBUTION WIDTH 13.7 % (11.5-14.5); WHITE BLOOD COUNT 4.7 x10^3/uL (4.0-11.0)
[2020-12-16 09:07] LABS: ALBUMIN 3.7 g/dL (3.4-5.0); ALBUMIN/GLOBULIN RATIO 1.2 (1.0-1.7); CALCIUM 9.3 mg/dL (8.5-10.1); CREATININE 0.8 mg/dL (0.6-1.0); GFR 72.7; TOTAL BILIRUBIN 0.7 mg/dL (0.2-1.0); TOTAL PROTEIN 6.8 g/dL (6.4-8.2)
[2020-12-16 09:09] LABS: CHOLESTEROL/HDL RATIO 2.7
[2020-12-16 09:17] LABS: FREE T4 1.49 ng/dL (0.76-1.46); THYROID STIM HORMONE (TSH) 1.068 uIU/mL (0.358-3.74)
[2020-12-17 00:11] LABS: HEMOGLOBIN A1C 5.7 % (4.8-5.6)
== END ==
LOC: LAB 07:58
PROVIDERS: ATTEND Hospitalist
DX: Z00.01 Encounter for general adult medical examination with abnormal findings (principal); E03.9 Hypothyroidism, unspecified; I10 Essential (primary) hypertension; D51.9 Vitamin B12 deficiency anemia, unspecified; E55.9 Vitamin D deficiency, unspecified; E66.01 Morbid (severe) obesity due to excess calories; E78.5 Hyperlipidemia, unspecified; R73.02 Impaired glucose tolerance (oral); Z98.84 Bariatric surgery status
CPT/HCPCS: 36415; 80053; 80061; 82306; 82607; 83036; 84439; 84443; 85025

== ENCOUNTER → 2021-03-03 | Outpatient (CLI) | payer OTHER ==
[~2021-03-03] MED LIST changes: +BUPIVACAINE MPF 0.25% 10 ML VIAL. ONE; +IOHEXOL 180 MG/ML 10 ML VIAL. ONE; +methylPREDNISolone ACETATE 40 MG/ML VIAL. ONE; +methylPREDNISolone ACETATE 80 MG/ML VIAL. ONE
--- NOTE | 2021-03-03 12:45 | PDOC1 ---
INITIAL PAIN CONSULT DATE OF SERVICE: DOS: DATE: 03/03/21 TIME: 12:38 CHIEF COMPLAINT: Chief Complaint: Bilateral knee joint pain HISTORY OF PRESENT ILLNESS: 60-year-old female presents with history of pain in bilateral knees for 10+ years patient has had multiple treatments over the years for her knees including physical therapy chiropractic treatment doing exercise currently and has had multiple cortisone injections as well as hyaluronidase injections in the knees without significant long-term improvement. Patient reports now the pain is worse with walking standing describes as constant changes during the day aching as well in the back of the knee as well as the medial aspect of the knee again more on the left than the right patient rates her disability rating 0-10 10 being the worst is a 5 with an responsibility social activity occupation sexual behavior and self-care 3 with life support activities and 7 with recreational activities. Patient has had knee x-rays in the past and the most recent ones are October 2019 showing mild to moderate lateral compartment predominant osteoarthritis on the left greater than right with small loose bodies bilaterally. PAST MEDICAL HISTORY: PMH: Arthritis, asthma, weight loss PREVIOUS SURGERIES: Past Surgical Hx: Tonsillectomy, hysterectomy with appendectomy, cervical fusion, right breast biopsy, gastric bypass CURRENT MEDICATIONS: Current Meds: Active Scripts Medications Dose Route/Sig Max Daily Dose Days Date Category Multi-Day Vitamins (Multivitamin) 1 Each Tablet 1 Tab PO DAILY 07/26/16 Reported Prevacid (Lansoprazole) 30 Mg Capsule.dr 30 Mg PO DAILY 07/26/16 Reported Levothyroxine Sodium 137 Mcg Tablet 137 Mcg PO DAILYAC 07/26/16 Reported ALLERGIES; Allergies: Coded Allergies: aspirin (Verified Allergy, Intermediate, Hives, 07/26/16) doxycycline (Verified Allergy, Mild, Rash, 11/03/20) FAMILY HISTORY: Family Hx: Heart disease, strokes SOCIAL HISTORY: Social Hx: Patient does not drink alcohol does not smoke not use any illegal illicit or recreational drugs is lives with her spouse lives locally in [facility] 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 PHYSICAL EXAM: VS: Blood pressure is 11/22/1968 pulse 70 respirations 18 temperature 90 point degrees Fahrenheit height is 5 foot 4 inches weight is 160 PE: PHYSICAL EXAMINATION: GENERAL: The patient is awake, alert, oriented, appropriate, very pleasant demeanor HEENT: Shows normocephalic, atraumatic. Extraocular movements are intact and symmetrical. Oral cavity: Mucous membranes moist and pink. Dentition is intact. NECK: Shows anterior throat supple without palpable lymphadenopathy noted. Swallow reflex symmetrical. CHEST: Shows normal on inspection. Breath sounds are clear bilaterally, no rales rhonchi wheezes auscultated. HEART: Shows S1, S2 clear. No murmurs auscultated. ABDOMEN: Soft, nontender, nondistended, obese. No palpable organomegaly is noted. No rebound or guarding demonstrated. BACK: Shows spine grossly in the midline. Normal-appearing cervical lordotic curvature. There is slightly increased thoracic kyphosis, some minor flattening of the lumbar lordotic curvature. The patient has good rotational motion of the lumbar spine, both laterally as well as extension and flexion without significant difficulty. No tenderness over the spinous processes, sacrum or sacroiliac regions. EXTREMITIES: Lower extremities show deep tendon reflexes 2+ in the patellar and tendo calcaneus tendons. Motor exam is 5 on a scale of 5 with right dorsiflexion, extension, quadriceps and hamstring flexion and 5/5 on the left. Peripheral pulses are 1+ posterior tibial. No peripheral edema is noted bilaterally. Lower extremities are warm and dry to touch, equal in color and appearance. Patient's knees show good range of motion bilaterally without crepitus without ratcheting. With palpation shows a moderate tenderness more over the medial collateral ligament and the lateral aspect no difficulty of the patellar tendons or pain reported. SKIN: Shows warm and dry, good turgor. No edema. No sores, rashes or bruising throughout. IMPRESSION: Impression: 60-year-old female with long history of bilateral knee joint pain left greater than right with history of osteoarthritis History of multiple interventions with success with corticosteroid over hyaluronidase Plan: Options discussed with the patient including conservative medical management continued physical therapies and vaginal techniques. Patient would like to pursue interventional techniques. We discussed intra-articular knee joint injections in the bilateral knees using fluoroscopic guidance. Risk were discussed including but not limited to bleeding infection possibility of intrava scular injection sequelae spread local anesthetic numbness side effects steroid medication exposure fluoroscopy and portals regarding pain control. Patient understands wished to proceed. Patient will return to the clinic in approximate 2 months for follow-up as scheduled was counseled as return appointment activity level and side effects to be aware of. Under sterile prep and drape patient supine position using C-arm fluoroscopic guidance bilateral knees were visualized and using 1% lidocaine over the medial aspect of the intra-articular joint was topic anesthetized using a 22-gauge Quincke needle with stylette was then entered under direct fluoroscopic guidance into the knee joint both right and left without difficulty stylet was removed 1.5 cc of contrast was injected into each knee for total of 3 cc with good spread within the knee joint itself without extravasation without uptake. At this time concentration of 3 cc 0.25 bupivacaine and 60 mg of Depo-Medrol was placed within each knee. [place] withdrawn and sterile bandages were applied. Patient tolerated the procedure well and had no complications. NORA LEONARDO MD Mar 03, 2021 12:45
--- NOTE | 2021-03-03 12:46 | PDOC4 ---
PROCEDURE Procedure Patient was consented for bilateral intra-articular knee joint injections. Risk were discussed including but not limited to bleeding infection possibility of intravascular injection sequelae spread local anesthetic numbness side effects steroid medication exposure fluoroscopy and poor results regarding pain control. Patient understands wished to proceed. Under sterile prep and drape patient supine position using C-arm fluoroscopic guidance bilateral knees were visualized and using 1% lidocaine over the medial aspect of the intra-articular joint was topic anesthetized using a 22-gauge Quincke needle with stylette was then entered under direct fluoroscopic guidance into the knee joint both right and left without difficulty stylet was removed 1.5 cc of contrast was injected into each knee for total of 3 cc with good spread within the knee joint itself without extravasation without uptake. At this time concentration of 3 cc 0.25 bupivacaine and 60 mg of Depo-Medrol was placed within each knee. [place] withdrawn and sterile bandages were applied. Patient tolerated the procedure well and had no complications. NORA LEONARDO MD Mar 03, 2021 12:46
== END | disposition home or self-care (01) ==
LOC: PNCL 10:49
PROVIDERS: ATTEND Anesthesiology
DX: M25.562 Pain in left knee (principal); M25.561 Pain in right knee; M19.90 Unspecified osteoarthritis, unspecified site; J45.909 Unspecified asthma, uncomplicated; I10 Essential (primary) hypertension; K21.9 Gastro-esophageal reflux disease without esophagitis; E03.9 Hypothyroidism, unspecified; Z90.710 Acquired absence of both cervix and uterus; Z98.890 Other specified postprocedural states; Z79.899 Other long term (current) drug therapy; Z88.1 Allergy status to other antibiotic agents; Z88.5 Allergy status to narcotic agent; Z82.49 Family history of ischemic heart disease and other diseases of the circulatory system
CPT/HCPCS: 20610; 77002; J1030; J1040; J3490; Q9965

== ENCOUNTER → 2021-05-12 | Outpatient (CLI) | payer OTHER ==
--- NOTE | 2021-05-12 14:54 | PDOC ---
Progress Note - Pain Clinic Date of Service: DOS: DATE: 05/12/21 TIME: 14:51 Diagnosis: Dx: Bilateral knee joint pain with osteoarthritis History or Present Illness: HPI: 60-year-old female returns follow-up status post bilateral knee joint injections March 03, 2021. Patient reports she did very well about 50% improvement but took a few days for the pain to decrease and is still doing very well with the injection but the pain is returning now patient reports is worse on the left side than the right worse with walking standing changing positions as she climbing stairs or steps putting all her weight on 1 knee or the other levels significantly tender bilaterally the left is more tender. Patient reports is an 8 on scale 10 is worse over the past week 8 on average 6 its least and is an 8 today patient reports a dull aching constant throbbing at times and swelling and pressure in the back of the left knee with walking. Patient reports it wakes her from sleep very rarely does not cause any loss of balance patient reports initially she was in much better with distance walking doing household activities work activities travel with greater ease and comfort. Physical Exam: VS: Blood pressure is 105/66 pulse 70 respirations 18 temperature 98.0 F weight is 164 pounds PE: PHYSICAL EXAMINATION: GENERAL: The patient is awake, alert, oriented, appropriate, very pleasant in demeanor HEENT: Shows normocephalic, atraumatic. Extraocular movements are intact and symmetrical. Oral cavity: Mucous membranes moist and pink. Dentition is intact. NECK: Shows anterior throat supple without palpable lymphadenopathy noted. Swallow reflex symmetrical. CHEST: Shows normal on inspection. Breath sounds are clear bilaterally. HEART: Shows S1, S2 clear. No murmurs auscultated. ABDOMEN: Soft, nontender, nondistended. BACK: Shows spine grossly in the midline. Normal-appearing cervical lordotic curvature. There is slightly increased thoracic kyphosis, some minor flattening of the lumbar lordotic curvature.. EXTREMITIES: Lower extremities show deep tendon reflexes 2+ in the patellar and tendo calcaneus tendons. Motor exam is 5 on a scale of 5 with right dorsiflexion, extension, quadriceps and hamstring flexion and 5/5 on the left. Peripheral pulses are 1 posterior tibial. No peripheral edema is noted bilaterally. Lower extremities are warm and dry to touch, equal in color and appearance. Patient's knees show good rotation of motion without crepitus without ratcheting bilaterally, moderate tenderness with palpation of the posterior popliteal fossa but without radiation. Right side is nontender posteriorly. SKIN: Shows warm and dry, good turgor. No edema. No sores, rashes or bruising throughout. Procedure: Procedure: Options were discussed with the patient. Patient chart reviews her current medication regimen updated current review of systems updated today as well. We will proceed with bilateral intra-articular knee joint injections today with fluoroscopic guidance. Risk were discussed including but not limited to bleeding infection possibility of intravascular injection sequelae spread local anesthetic numbness side effects steroid medication exposure to fluoroscopy and poor results regarding pain control. Patient understands and wishes to proceed. Medication Injected: Med Injected: Under sterile prep and drape patient in supine position using C-arm fluoroscopic guidance patient's bilateral knees were sterilely prepped and draped in usual fashion. Using C-arm fluoroscopy the medial aspect of the knee joint was identified and visualized and using 1% lidocaine 25-gauge needle of the area of the skin overlying the medial knee compartment was anesthetized. Using a 22- gauge quickie needle with stylette the joint was entered under direct visualization without difficulty. Stylet was removed at this time 2 cc of contrast was then injected with good spread within the knee joint itself without washout or uptake. At this time solution containing 3 cc each knee of 0.25 bupivacaine for total of 6 cc and a total of 120 mg Depo-Medrol, 60 mg per knee, were then injected. [place] were withdrawn and sterile bandages were applied. Patient tolerated procedure well and had no complications. Condition at Discharge: Condition at Discharge: Condition at discharge is stable, patient alert the procedure well and had no complications. NORA LEONARDO MD May 12, 2021 14:54
== END | disposition home or self-care (01) ==
LOC: PNCL 14:04
PROVIDERS: ATTEND Anesthesiology
DX: M17.0 Bilateral primary osteoarthritis of knee (principal); I10 Essential (primary) hypertension; J45.909 Unspecified asthma, uncomplicated; K21.9 Gastro-esophageal reflux disease without esophagitis; E03.9 Hypothyroidism, unspecified; Z90.710 Acquired absence of both cervix and uterus; Z98.890 Other specified postprocedural states; Z79.899 Other long term (current) drug therapy; Z88.1 Allergy status to other antibiotic agents; Z88.8 Allergy status to other drugs, medicaments and biological substances
CPT/HCPCS: 77002; J1030; J1040; J3490; Q9965; 20610-50

== ENCOUNTER → 2021-05-31 | Outpatient (CLI) | payer OTHER ==
[~2021-05-31] MED LIST changes: -BUPIVACAINE MPF 0.25% 10 ML VIAL. ONE; -IOHEXOL 180 MG/ML 10 ML VIAL. ONE; -methylPREDNISolone ACETATE 40 MG/ML VIAL. ONE; -methylPREDNISolone ACETATE 80 MG/ML VIAL. ONE
--- NOTE | 2021-05-31 13:55 | RAD ---
EXAM: Right breast diagnostic mammogram with tomosynthesis. HISTORY: 60-year-old female presents for follow-up evaluation status post benign right breast biopsy. TECHNIQUE: Full-field digital craniocaudal and mediolateral oblique 2D and 3D tomosynthesis images of the right breast are obtained for evaluation. Computer aided detection was applied. COMPARISON: 11/04/2020, 10/05/2020, 09/28/2020, 10/02/2019 BREAST PARENCHYMAL DENSITY: Level C - Heterogeneously dense. FINDINGS: There is a biopsy clip within the posterior 10:00 position of the right breast, consistent with the site of reported benign biopsy. There are additional calcifications within the right breast which are stable in appearance. There are stable areas of asymmetry and nodularity within the right b reast. There is no new suspicious mass, calcification or architectural distortion. IMPRESSION: 1. No new suspicious sonographic finding. 2. BI-RADS Category 2: Benign finding(s). RECOMMENDATION: Annual screening mammography in 4 months is recommended to correspond with the previo usly established bilateral screening mammography interval. If your mammogram demonstrates that you have dense breast tissue, which could hide abnormalities, and if you have other risk factors for breast cancer that have been identified, you might benefit from s upplemental screening tests that may be suggested by your ordering physician. Dense breast tissue, i n and of itself, is a relatively common condition. This information is not provided to cause undue c oncern, but rather to raise your awareness and to promote discussion with your physician regarding th e presence of other risk factors, in addition to dense breast tissue. A report of your mammography re sults will be sent to you and your physician. You should contact your physician if you have any ques tions or concerns regarding this report. Mammography is a sensitive method for finding small breast cancers, but it does not detect them all a nd is not a substitute for careful clinical examination. A negative mammogram does not negate a clin ically suspicious finding and should not result in delay in biopsying a clinically suspicious abnorma lity. PQRS compliance statement - Patient information was entered into a reminder system with a target due date for the next mammogram. "Our facility is accredited by the [employer] Mammography Program." Electronically signed by: Luana De La Fuente MD (05/31/2021 1:53 PM) [id number]
== END ==
LOC: MAMMO 13:05
PROVIDERS: ATTEND Surgery
DX: R92.1 Mammographic calcification found on diagnostic imaging of breast (principal); R92.8 Other abnormal and inconclusive findings on diagnostic imaging of breast
CPT/HCPCS: 77065; G0279; 77061

== ENCOUNTER → 2021-07-04 | Outpatient (CLI) | payer OTHER ==
[~2021-07-04] MED LIST changes: +BUPIVACAINE MPF 0.25% 10 ML VIAL. ONE; +IOHEXOL 180 MG/ML 10 ML VIAL. ONE; +methylPREDNISolone ACETATE 40 MG/ML VIAL. ONE
--- NOTE | 2021-07-04 14:37 | PDOC ---
Progress Note - Pain Clinic Date of Service: DOS: DATE: 07/04/21 TIME: 14:31 Diagnosis: Dx: Bilateral knee joint pain with primary osteoarthritis History or Present Illness: HPI: 60-year-old female returns for follow-up status post bilateral knee joint injections May 12, 2021. Patient reports about 50% improvement of the right knee but minimal improvement on the left knee patient reports that her left knee has been her main complaint is having worse time with weightbearing walking standing put all of her weight on one night and also when she is sitting with her knee in about a 90 degree angle patient reports the pain is very noticeable and when she extends it fully such as placing on ottoman or a rest she has some tingling and cramping in her toes patient reports her pain is a 9 on scale 10 is worse over the past week 7 on average 5 its least is a 7 today patient describes as aching and tight constant also pain in the posterior aspect the knee but more to the lateral aspect than the medial aspect with weightbearing and sitting. She reports it is not awaken her from sleep at night but can occasionally if she rolls right way on the left knee. Patient reports no new bowel or bladder incontinence no new findings. Physical Exam: VS: Blood pressure is 109/70 pulse is 81 respirations 18 temperature 98.2 F weight is 162 pounds PE: PHYSICAL EXAMINATION: GENERAL: The patient is awake, alert, oriented, appropriate, very pleasant in demeanor. HEENT: Shows normocephalic, atraumatic. Extraocular movements are intact and symmetrical. Oral cavity: Mucous membranes moist and pink. Dentition is intact. NECK: Shows anterior throat supple without palpable lymphadenopathy noted. Swallow reflex symmetrical. CHEST: Shows normal on inspection. Breath sounds are clear bilaterally, distant but no rales or rhonchi. HEART: Shows S1, S2 clear. No murmurs auscultated. ABDOMEN: Soft, nontender, nondistended, obese. No palpable organomegaly is noted. BACK: Shows spine grossly in the midline. Normal-appearing cervical lordotic curvature. There is slightly increased thoracic kyphosis, some minor flattening of the lumbar lordotic curvature. EXTREMITIES: Lower extremities show deep tendon reflexes 2+ in the patellar and tendo calcaneus tendons. Motor exam is 5 on a scale of 5 with right dorsiflexion, extension, quadriceps and hamstring flexion and 5/5 on the left. Peripheral pulses are 1+ posterior tibial. No peripheral edema is noted bilaterally. Lower extremities are warm and dry to touch, equal in color and appearance. Patient's left knee shows significant tenderness with palpation over the lateral collateral ligament and moderate palpation of the medial collateral ligament good mobility of the patella without significant tenderness good range of motion bilaterally with the knees with hinged range of motion no crepitus no obvious ratcheting demonstrated bilaterally. SKIN: Shows warm and dry, good turgor. No edema. No sores, rashes or bruising throughout. Procedure: Procedure: Options were discussed with patient. Patient chart reviews her current medication regimen updated current review of systems updated today as well. We will proceed with a left intra-articular knee joint injection today with fluoros copic guidance. Risk were discussed including but not limited bleeding infection possibility of intravascular ejection sequelae spread local anesthetic numbness side effects steroid medications post arthroscopy and portals regarding pain control. Patient understands wished to proceed. Patient return to the clinic in approximately 4 weeks for follow-up, was counseled as return ap pointment active level and side effects to be aware of. Medication Injected: Med Injected: Under sterile prep and drape patient in supine position using C-arm fluoroscopic guidance patient's left knee was sterilely prepped and draped in usual fashion. Using C-arm fluoroscopy the lateral aspect of the knee joint was identified and visualized and using 1% lidocaine 25-gauge needle of the area of the skin overlying the lateral knee compartment was anesthetized. Using a 22-gauge quickie needle with stylette the joint was entered under direct visualization without difficulty. Stylet was removed at this time 1.5cc of contrast was then injected with good spread within the knee joint itself without washout or uptake. At this time solution containing 3 cc of 0.25 bupivacaine for total of 6 cc and 40 mg of Depo-Medrol was then injected. Needle was withdrawn and sterile bandage applied. Patient tolerated procedure well and had no complications. Condition at Discharge: Condition at Discharge: Condition at discharge stable, patient already procedure well and had no complications. NORA LEONARDO MD Jul 04, 2021 14:37
--- NOTE | 2021-07-04 14:37 | PDOC4 ---
Procedure Note: ICD 10 Code: ICD 10 Code: M2 5.562 M1 7.12 Procedure Note: Patient was consented for left intra-articular knee joint injection with fluoroscopic guidance. These were discussed including but not limited to bleeding infection possibility of intravascular injection sequelae spread of local anesthetic and numbness side effects of steroid medication exposure fluoroscopy and poor results regarding pain control. Patient understands wished to proceed. Under sterile prep and drape patient in supine position using C-arm fluoroscopic guidance patient's left knee was sterilely prepped and draped in usual fashion. Using C-arm fluoroscopy the lateral aspect of the knee joint was identified and visualized and using 1% lidocaine 25-gauge needle of the area of the skin overlying the lateral knee compartment was anesthetized. Using a 22-gauge quickie needle with stylette the joint was entered under direct visualization without difficulty. Stylet was removed at this time 1.5cc of contrast was then injected with good spread within the knee joint itself without washout or uptake. At this time solution containing 3 cc of 0.25 bupivacaine for total of 6 cc and 40 mg of Depo-Medrol was then injected. Needle was withdrawn and sterile bandage applied. Patient tolerated procedure well and had no complications. NORA LEONARDO MD Jul 04, 2021 14:37
== END ==
LOC: PNCL 13:23
PROVIDERS: ATTEND Anesthesiology
DX: M17.12 Unilateral primary osteoarthritis, left knee (principal); I10 Essential (primary) hypertension; K21.9 Gastro-esophageal reflux disease without esophagitis; J45.909 Unspecified asthma, uncomplicated; M19.90 Unspecified osteoarthritis, unspecified site; E03.9 Hypothyroidism, unspecified; Z87.442 Personal history of urinary calculi; Z86.010 Personal history of colon polyps; Z90.710 Acquired absence of both cervix and uterus; Z98.890 Other specified postprocedural states
CPT/HCPCS: 20610; 77002; J1030; J3490; Q9965

== ENCOUNTER → 2021-09-09 | Outpatient (CLI) | payer OTHER ==
[~2021-09-09] MED LIST changes: +AZIT250T6 PO; -BUPIVACAINE MPF 0.25% 10 ML VIAL. ONE; -IOHEXOL 180 MG/ML 10 ML VIAL. ONE; +LORA10TA68 PO; -methylPREDNISolone ACETATE 40 MG/ML VIAL. ONE
[2021-09-09 07:36] LABS: BASO % 1 % (0-3); EOS # 0.1 x10^3/uL (0.0-0.7); EOS % 2 % (0-3); HEMATOCRIT 43.3 % (36.0-47.0); HEMOGLOBIN 14.2 g/dL (12.0-15.5); LYMPH # 2.1 x10^3/uL (1.0-4.8); LYMPH % 40 % (24-48); MEAN CORPUSCULAR HEMOGLOBIN 29 pg (25-35); MEAN CORPUSCULAR HGB CONC 33 g/dL (31-37); MEAN CORPUSCULAR VOLUME 87 fL (79-100); MONO # 0.5 x10^3/uL (0.0-1.1); MONO % 9 % (0-9); NEUT # 2.5 x10^3/uL (1.8-7.7); NEUT % 48 % (31-73); PLATELET COUNT 205 x10^3/uL (140-400); RED BLOOD COUNT 4.99 x10^6/uL (3.50-5.40); WHITE BLOOD COUNT 5.3 x10^3/uL (4.0-11.0)
[2021-09-09 07:46] LABS: ALBUMIN 3.6 g/dL (3.4-5.0); ALBUMIN/GLOBULIN RATIO 1.1 (1.0-1.7); CALCIUM 9.3 mg/dL (8.5-10.1); CHOLESTEROL/HDL RATIO 3.4; GFR 56.2; POTASSIUM 3.8 mmol/L (3.5-5.1); TOTAL BILIRUBIN 0.3 mg/dL (0.2-1.0)
[2021-09-09 07:59] LABS: FREE T4 1.2 ng/dL (0.76-1.46); THYROID STIM HORMONE (TSH) 0.847 uIU/mL (0.358-3.74)
[2021-09-10 01:09] LABS: HEMOGLOBIN A1C 5.8 % (4.8-5.6)
== END ==
LOC: SPEC 07:19
PROVIDERS: ATTEND Hospitalist
DX: Z00.00 Encounter for general adult medical examination without abnormal findings (principal)
CPT/HCPCS: 36415; 80053; 80061; 83036; 84439; 84443; 85025

== ENCOUNTER 2021-09-15 18:26 | Observation (INO) | payer OTHER ==
[~2021-09-15] VITALS: Ht 165.1 cm; Wt 76.0 kg
[~2021-09-15 18:26] MED LIST changes: -AZIT250T6 PO; -LORA10TA68 PO
--- NOTE | 2021-09-15 18:31 | PHYS DOC ---
Past Medical History Past Medical History: Asthma, Bronchitis, Hypothyroid Additional Past Medical Histor: GREGORIO Past Surgical History: Cervical Fusion, Gastric Bypass, Other Smoking Status: Never Smoker Alcohol Use: None Drug Use: None General Adult HPI: HPI: Patient is a 60 year old female who presents with sudden onset of chest pain, radiating to her mid thoracic back, shortly after receiving her COVID-19 booster. She received her booster around 5:30 PM, and symptoms began shortly before 6 PM. She denies numbness or tingling, denies radiation of pain down her arms, lower back, or abdomen. She reports some lower abdominal "rumbling" and an episode of loose stool here. She denies nausea or vomiting. She does report feeling lightheaded/dizzy. No diaphoresis. No syncope. She denies lower extremity numbness or tingling. She checked her blood pressure which was normal but she noticed that she was tachycardic. She felt that perhaps anxiety was causing her symptoms so she tried to calm herself, but her pain symptoms persisted. She does not have any known history of cardiac problems, no history of MT or coronary disease. No history of known aortic aneurysm or dissection. All of her chronic medical problems are relatively well controlled are now resolved after having gastric bypass surgery 4 years ago. She does have a strong family history of early coronary disease and MT. Review of Systems: Review of Systems: Constitutional: Denies fever or chills. [] Eyes: Denies change in visual acuity. [] HENT: Denies nasal congestion or sore throat. [] Respiratory: She does report shortness of breath. Denies cough or hemoptysis. Cardiovascular: Denies edema. Reports chest pain and thoracic back pain. GI: Reports mild and transient abdominal cramping, with one episode of loose stool. No nausea or vomiting. : Denies urinary symptoms. Musculoskeletal: Ports midthoracic back pain. Denies low back pain. Denies joint pain or swelling. Integument: Denies rash. [] Neurologic: Denies headache, focal weakness or sensory changes. She does report lightheadedness/dizziness. No syncope. Endocrine: Denies polyuria or polydipsia. [] Lymphatic: Denies swollen glands. [] Psychiatric: Denies depression or anxiety. [] Heart Score: C/O Chest Pain: Yes HEART Score for Chest Pain: HEART Score for Chest Pain Response (Comments) Value History Moderately Suspicious 1 Age >45 - < 65 1 Risk Factors 1 or 2 Risk Factors 1 Troponin < Normal Limit 0 Total 3 Risk Factors: Risk Factors: DM, Current or recent (<one month) smoker, HTN, HLP, family history of CAD, obesity. Risk Scores: Score 0 - 3: 2.5% MACE over next 6 weeks - Discharge Home Score 4 - 6: 20.3% MACE over next 6 weeks - Admit for Clinical Observation Score 7 - 10: 72.7% MACE over next 6 weeks - Early Invasive Strategies Allergies: Allergies: Allergies Coded Allergies Type Severity Reaction Last Updated Verified aspirin Allergy Intermediate Hives 07/26/16 Yes doxycycline Allergy Mild Rash 11/03/20 Yes Physical Exam: PE: Constitutional: Well developed, well nourished, no acute distress, non-toxic appearance. She appears to be mildly uncomfortable. HENT: Normocephalic, atraumatic Eyes: Sclera are clear and anicteric. Neck: Normal range of motion, no tenderness, supple, no stridor. [] Cardiovascular:Heart rate regular rhythm, no murmur, heart rate in the 90s on my exam. +2 radial and dorsalis pedis pulses bilaterally. Lungs & Thorax: Bilateral breath sounds clear to auscultation, equal chest rise, lung sounds are clear bilaterally, no rales, rhonchi or wheezes. No stridor. Speaks in full and clear sentences. Abdomen: Bowel sounds normal, soft, no tenderness, no masses, no pulsatile masses. No CVA tenderness. Skin: Warm, dry, no erythema, no rash. [] Back: No tenderness, no CVA tenderness. [] Extremities: No tenderness, no cyanosis, no clubbing, ROM intact, no edema. No calf tenderness. Neurologic: Alert and oriented X 3, normal motor function, normal sensory function, no focal deficits noted. [] Psychologic: She is mildly anxious, but she is pleasant and cooperative. EKG: EKG: EKG is interpreted at 1830 Rhythm is sinus tachycardia Rate is 104 bpm Franklin is left No STEMI EKG interpreted at 1953 Rhythm is sinus Rate is 75 bpm Franklin is left No STEMI ST-T changes improved with improved rate EKG is interpreted at 2238 Rhythm is sinus Rate is 71 bpm [place] is left No STEMI Radiology/Procedures: Radiology/Procedures: IMAGING REPORT Signed PATIENT: VAN PRIETOACCOUNT: [id number] : 1960 LOCATION: ER AGE: 60 SEX: F EXAM STATUS: REG ER ORD. PHYSICIAN: SUPA MURPHY DO REASON: chest pain PROCEDURE: PORTABLE CHEST 1V EXAMINATION: Chest radiograph. VIEWS: Single AP view of the chest COMPARISON: None INDICATION:60 years, Female, chest pain. FINDINGS: Normal cardiomediastinal silhouette. No focal consolidation. No pleural effusion or pneumothorax. No acute osseous process. S-shaped curvature of the thoracolumbar spine. IMPRESSION: No acute cardiopulmonary process. Electronically signed by: Marcus Palacios DO (09/15/2021 7:24 PM) [facility] DICTATED and SIGNED BY: MARCUS PALACIOS DO DATE: 09/15/21 [id number] 0 IMAGING REPORT Signed PATIENT: VAN PRIETOACCOUNT: [id number] : 1960 LOCATION: ER AGE: 60 SEX: F EXAM STATUS: REG ER ORD. PHYSICIAN: SUPA MURPHY DO REASON: chest pain;OMNI 350, 100ML PROCEDURE: CT ANGIOGRAPHY CHEST EXAM: CT chest with contrast - pulmonary embolus protocol CLINICAL HISTORY: Reason: chest pain;OMNI 350, 100ML / Spl. Instructions: / History: . Chest pain COMPARISON: Same day radiograph TECHNIQUE: CT of the chest following the administration of intravenous contrast during the pulmonary arterial phase. Axial, coronal and sagittal reformatted images were generated including MIP images. ---PQRS compliance statement - One or more of the following individualized dose reduction techniques were utilized for this study: 1. Automated exposure control 2. Adjustment of the mA and/or kV according to patient size 3. Use of iterative reconstruction technique--- FINDINGS: CHEST: Diagnostic quality: Adequate. Pulmonary emboli: No pulmonary emboli to the level of the segmental branches. More peripheral vessels are not well assessed. Right heart strain: None Pulmonary arteries: Normal in caliber. Chest thyroid gland is unremarkable. No supraclavicular or axillary adenopathy. The heart size is normal. No pericardial effusion. There is severe coronary atherosclerotic disease. The thoracic aorta is normal in course and caliber with scattered areas of atherosclerotic disease. No pathologically enlarged mediastinal or hilar adenopathy. There is frothy material within the esophagus at least up to the midportion suggestive of gastroesophageal reflux and/or delayed motility. Subtle tree-in-bud opacities within the right lower lobe image 91/3. No focal consolidation, pneumothorax, or pleural effusion. There is a subtle mosaic attenuation of the pulmonary parenchyma suggestive of small airway disease. Visualized Upper abdomen: No evidence of acute process in the upper abdomen. Small splenule noted within the splenic hilum. Bones: S-shaped curvature of the thoracolumbar spine. There is moderate to severe multilevel degenerative changes. No evidence for acute or suspicious osseous abnormalities. IMPRESSION: 1. No evidence of pulmonary embolism to the level of the segmental pulmonary arteries. 2. Subtle tree-in-bud opacities within the right lower lobe suggestive of infectious or inflammatory bronchiolitis. 3. Other chronic/incidental findings, as detailed above. Electronically signed by: Marcus Palacios DO (09/15/2021 9:04 PM) [facility] DICTATED and SIGNED BY: MARCUS PALACIOS DO DATE: 09/15/[id number] 0 Course & Med Decision Making: Course & Med Decision Making Pertinent Labs and Imaging studies reviewed. (See chart for details) I discussed the findings, differential diagnoses and plan of care with the patient. Serial troponin are negative. She is given fentanyl and morphine for pain. Her pain is somewhat improved but still present. IV Toradol ordered. She has severe anaphylaxis allergy to aspirin, so this is not given. She did have an episode of nausea after morphine, so she is given IV Zofran. She is given p.o. potassium chloride replacement. Vital signs are stable. Tachycardia has remained resolved. CT does not demonstrate any acute life-threatening process. She has never seen cardiology, she has not had any outpatient provocative testing previously. I have strongly recommended admission for serial enzymes, serial EKGs as well as cardiology consult. She is initially quite reluctant to do this, but I was able to speak with her, with her daughter, and she ultimately did agree to this. Her serial EKG exams in the department are improved and stable. She will be admitted to the hospitalist service, accepted by Dr. Stevenson. Ruddy Disclaimer: Ruddy Disclaimer: This electronic medical record was generated, in whole or in part, using a voice recognition dictation system. Departure Departure Impression: Primary Impression: Chest pain Qualified Codes: R07.9 - Chest pain, unspecified Additional Impressions: Thoracic back pain Qualified Codes: M54.6 - Pain in thoracic spine Hypokalemia Disposition: ADMITTED INPATIENT Admitting Physician: MARY ELLEN Condition: STABLE Referrals: HAMIDA THOMAS MD (PCP) SUPA MURPHY DO Sep 15, 2021 18:31
[2021-09-15] MEDS ORDERED: fentaNYL PF VIAL 100 MCG/2 ML VIAL IVP ONE (19:00)
[2021-09-15] MEDS ORDERED: IV NORMAL SALINE 1000ML BAG 1,000 ML IV ONE ×2 (19:00→22:15)
[2021-09-15] MEDS ORDERED: IOHEXOL 350 MG/ML 100 ML VIAL. IV ONE (19:15)
[2021-09-15 19:21] LABS: BASO % 1 % (0-3); EOS # 0.1 x10^3/uL (0.0-0.7); EOS % 2 % (0-3); HEMATOCRIT 41.7 % (36.0-47.0); LYMPH # 1.7 x10^3/uL (1.0-4.8); LYMPH % 29 % (24-48); MEAN CORPUSCULAR HEMOGLOBIN 29 pg (25-35); MEAN CORPUSCULAR HGB CONC 34 g/dL (31-37); MEAN CORPUSCULAR VOLUME 86 fL (79-100); MONO # 0.7 x10^3/uL (0.0-1.1); MONO % 12 % (0-9); NEUT # 3.4 x10^3/uL (1.8-7.7); NEUT % 57 % (31-73); PLATELET COUNT 196 x10^3/uL (140-400); RED BLOOD COUNT 4.86 x10^6/uL (3.50-5.40); RED CELL DISTRIBUTION WIDTH 13.9 % (11.5-14.5); WHITE BLOOD COUNT 5.9 x10^3/uL (4.0-11.0)
--- NOTE | 2021-09-15 19:26 | RAD ---
EXAMINATION: Chest radiograph. VIEWS: Single AP view of the chest COMPARISON: None INDICATION:60 years, Female, chest pain. FINDINGS: Normal cardiomediastinal silhouette. No focal consolidation. No pleural effusion or pneumothorax. No acute osseous process. S-shaped curvature of the thoracolumbar spine. IMPRESSION: No acute cardiopulmonary process. Electronically signed by: Catracho Palacios DO (09/15/2021 7:24 PM) [facility]
[2021-09-15 19:30] LABS: CALCIUM 9.2 mg/dL (8.5-10.1); CREATININE 0.9 mg/dL (0.6-1.0)
[2021-09-15 19:31] LABS: GFR 63.4; POTASSIUM 3.2 mmol/L (3.5-5.1)
[2021-09-15 19:37] LABS: ALBUMIN 3.7 g/dL (3.4-5.0); ALBUMIN/GLOBULIN RATIO 1.1 (1.0-1.7); MAGNESIUM 1.9 mg/dL (1.8-2.4); TOTAL BILIRUBIN 0.4 mg/dL (0.2-1.0)
[2021-09-15] MEDS ORDERED: POTASSIUM CHLORIDE 20 MEQ TABLET.ER. PO ONE (19:45)
--- NOTE | 2021-09-15 21:06 | RAD ---
EXAM: CT chest with contrast - pulmonary embolus protocol CLINICAL HISTORY: Reason: chest pain;OMNI 350, 100ML / Spl. Instructions: / History: . Chest pain COMPARISON: Same day radiograph TECHNIQUE: CT of the chest following the administration of intravenous contrast during the pulmonary arterial phase. Axial, coronal and sagittal reformatted images were generated including MIP images. ---PQRS compliance statement - One or more of the following individualized dose reduction techniques were utilized for this study: 1. Automated exposure control 2. Adjustment of the mA and/or kV according to patient size 3. Use of iterative reconstruction technique--- FINDINGS: CHEST: Diagnostic quality: Adequate. Pulmonary emboli: No pulmonary emboli to the level of the segmental branches. More peripheral vessel s are not well assessed. Right heart strain: None Pulmonary arteries: Normal in caliber. Chest thyroid gland is unremarkable. No supraclavicular or axillary adenopathy. The heart size is nor mal. No pericardial effusion. There is severe coronary atherosclerotic disease. The thoracic aorta is normal in course and caliber with scattered areas of atherosclerotic disease. No pathologically enla rged mediastinal or hilar adenopathy. There is frothy material within the esophagus at least up to th e midportion suggestive of gastroesophageal reflux and/or delayed motility. Subtle tree-in-bud opacities within the right lower lobe image 91/3. No focal consolidation, pneumoth orax, or pleural effusion. There is a subtle mosaic attenuation of the pulmonary parenchyma suggestiv e of small airway disease. Visualized Upper abdomen: No evidence of acute process in the upper abdomen. Small splenule noted wi thin the splenic hilum. Bones: S-shaped curvature of the thoracolumbar spine. There is moderate to severe multilevel degenera tive changes. No evidence for acute or suspicious osseous abnormalities. IMPRESSION: 1. No evidence of pulmonary embolism to the level of the segmental pulmonary arteries. 2. Subtle tree-in-bud opacities within the right lower lobe suggestive of infectious or inflammatory bronchiolitis. 3. Other chronic/incidental findings, as detailed above. Electronically signed by: Catracho Palacios DO (09/15/2021 9:04 PM) [facility]
[2021-09-15] MEDS ORDERED: MORPHINE SULFATE 4 MG/ML INJ. IVP ONE (21:15)
[2021-09-15] MEDS ORDERED: ONDANSETRON PF 4 MG/2 ML VIAL. IVP ONE (21:30)
[2021-09-15] MEDS ORDERED: ONDANSETRON PF 4 MG/2 ML VIAL. IVP PRN (22:15)
[2021-09-15] MEDS ORDERED: fentaNYL PF VIAL 100 MCG/2 ML VIAL IVP PRN (22:15)
[2021-09-15] MEDS ORDERED: KETOROLAC 15 MG/ML VIAL. IVP ONE (22:30)
--- NOTE | 2021-09-15 22:34 | EKG ---
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
[2021-09-15] MEDS ORDERED: IOHEXOL 300 MG/ML 100ML VIAL. ONE (23:27)
--- NOTE | 2021-09-15 23:30 | NUR ---
Admit from ER via gurney to [facility] room 669. A/O x 4 on arrival. Pleasant. Explains she started with Tachy HR and Chest Pain that radiated to Mid Upper Back after receiving Covid Booster this evening. Reports Mid Back pain rated 3/10 at this time. Improved from 8/10 while in ER. Reviewed POC to include NS x 1 liter,Tele monitor and Cardio Consult. Verbalized understanding. Resting in bed. Call light at hand.
[2021-09-15 23:56] VITALS: BP 120/64
[2021-09-16] MEDS ORDERED: LORA10TA68 PO (00:15)
[2021-09-16 01:16] LABS: BILIRUBIN,URINE NEGATIVE (NEG); CLARITY,URINE CLEAR; COLOR,URINE YELLOW; NITRITE,URINE NEGATIVE (NEG); PROTEIN,URINE NEGATIVE (NEG-TRACE); UROBILINOGEN,URINE 0.2 mg/dL (0.2 mg/dL)
[2021-09-16 01:25] LABS: BACTERIA,URINE 0 /HPF (0-FEW); RBC,URINE 0 /HPF (0-2); WBC,URINE OCC /HPF (0-4)
[2021-09-16 03:00] VITALS: BP 89/52
--- NOTE | 2021-09-16 05:05 | EKG ---
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
[2021-09-16 07:00] VITALS: BP 98/61
[2021-09-16] MEDS ORDERED: LEVOTHYROXINE 137 MCG TABLET PO SCH (07:45)
[2021-09-16 08:00] LABS: CALCIUM 8.6 mg/dL (8.5-10.1); CREATININE 0.7 mg/dL (0.6-1.0); GFR 84.8; POTASSIUM 3.8 mmol/L (3.5-5.1)
[2021-09-16] MEDS ORDERED: PANTOPRAZOLE 40 MG TABLET.DR. PO SCH (08:30)
[2021-09-16] MEDS ORDERED: AZITHRMYCN 500MG IVPB FOR OMNI 250 ML IV ONE (08:45)
[2021-09-16] MEDS ORDERED: AZIT250T6 PO (08:56)
[2021-09-16] MEDS ORDERED: MULTIVITAMIN with MINERAL TABLET. PO SCH (09:00)
[2021-09-16] MEDS ORDERED: CETIRIZINE HCL 10 MG TABLET. PO SCH (09:00)
--- NOTE | 2021-09-16 09:03 | PDOC1 ---
History and Physical Date of Admission Date of Admission DATE: 09/16/21 TIME: 08:58 Source Source: Chart review, Patient History of Present Illness History of Present Illness Ms. Deleon is a 60 year old female admit from ER with acute chest pain, acute pain after COVID-19 booster yesterday, She now says she was tachycardic before shot given, otherwise felt well, but then had pain to right chest that felt like it went through to the back. CT angio done based on this story, no dissection. She denies numbness or tingling, denies radiation of pain down her arms, lower back, or abdomen. Her pain is better this AM, cahnged with position, but is not reproducible and cannot be worsened with coughing or deep breaths. No diaphoresis. No syncope. She denies lower extremity numbness or tingling. All of her chronic medical problems are relatively well controlled are now resolved after having gastric bypass surgery 4 years ago, f/u labs done a week ago for yearly physical, reveiwed and OK Past Medical History Cardiovascular: No pertinent hx Pulmonary: Asthma (reactive to allergies only) Heme/Onc: No pertinent hx Hepatobiliary: No pertinent hx Endocrine: Hypothyroidism, Other (hypoglycemia) Past Surgical History Past Surgical History: Colon Resection ([place] en [place]) Family History Family History: Coronary Artery Disease, Heart Disease Social History Smoke: No ALCOHOL: none Current Problem List Problem List Problems Medical Problems: (1) Hypokalemia Status: Acute (2) Thoracic back pain Status: Acute Current Medications Current Medications Current Medications Sodium Chloride 1,000 ml @ 1,000 mls/hr 1X ONCE IV Last administered on 09/15/21at 19:59; Start 09/15/21 at 19:00; Stop 09/15/21 at 19:59; Status DC Fentanyl Citrate (Fentanyl 2ml Vial) 50 mcg 1X ONCE IVP Last administered on 09/15/21at 20:00; Start 09/15/21 at 19:00; Stop 09/15/21 at 19:07; Status DC Iohexol (Omnipaque 350 Mg/ml) 100 ml 1X ONCE IV Last administered on 09/15/21at 20:20; Start 09/15/21 at 19:15; Stop 09/15/21 at 19:16; Status DC Potassium Chloride (Klor-Con) 20 meq 1X ONCE PO Last administered on 09/15/21at 20:07; Start 09/15/21 at 19:45; Stop 09/15/21 at 19:56; Status DC Morphine Sulfate (Morphine Sulfate) 4 mg 1X ONCE IVP Last administered on 09/15/21at 21:15; Start 09/15/21 at 21:15; Stop 09/15/21 at 21:16; Status DC Ondansetron HCl (Zofran) 4 mg 1X ONCE IVP Last administered on 09/15/21at 21:26; Start 09/15/21 at 21:30; Stop 09/15/21 at 21:31; Status DC Ondansetron HCl (Zofran) 4 mg PRN Q8HRS PRN IVP NAUSEA/VOMITING; Start 09/15/21 at 22:15; Stop 09/16/21 at 22:14 Fentanyl Citrate (Fentanyl 2ml Vial) 50 mcg PRN Q2HR PRN IVP pain; Start 09/15/21 at 22:15 Sodium Chloride 1,000 ml @ 75 mls/hr 1X ONCE IV Last administered on 09/16/21at 00:19; Start 09/15/21 at 22:15; Stop 09/16/21 at 11:34 Ketorolac Tromethamine (Toradol 15mg Vial) 15 mg 1X ONCE IVP Last administered on 09/15/21at 22:42; Start 09/15/21 at 22:30; Stop 09/15/21 at 22:31; Status DC Iohexol (Omnipaque 300 Mg/ml) 100 ml STK-MED ONCE .ROUTE ; Start 09/15/21 at 23:27; Stop 09/15/21 at 23:27; Status DC Levothyroxine Sodium (Synthroid) 137 mcg DAILYAC PO Last administered on 09/16/21at 08:20; Start 09/16/21 at 07:45 Pantoprazole Sodium (Protonix) 40 mg DAILYAC PO Last administered on 09/16/21at 08:20; Start 09/16/21 at 08:30 Cetirizine HCl (ZyrTEC) 10 mg DAILY PO ; Start 09/16/21 at 09:00 Multivitamins (Thera M Plus) 1 tab DAILY PO Last administered on 09/16/21at 08:20; Start 09/16/21 at 09:00 Active Scripts Active Azithromycin Tablet (Azithromycin) 250 Mg Tablet 250 Mg PO DAILY 5 Days Reported Claritin (Loratadine) 10 Mg Tablet 10 Mg PO DAILY Multi-Day Vitamins (Multivitamin) 1 Each Tablet 1 Tab PO DAILY Prevacid (Lansoprazole) 30 Mg Capsule.dr 30 Mg PO DAILY Levothyroxine Sodium 137 Mcg Tablet 137 Mcg PO DAILYAC Allergies Allergies: Coded Allergies: aspirin (Verified Allergy, Intermediate, Hives, 07/26/16) doxycycline (Verified Allergy, Mild, Rash, 11/03/20) ROS General: No: Chills, Night Sweats, Fatigue, Malaise, Appetite, Other PSYCHOLOGICAL ROS: No: Anxiety, Behavioral Disorder, Concentration difficultie, Decreased libido, Depression, Disorientation, Hallucinations, Hostility, Irritablity, Memory difficulties, Mood Swings, Obsessive thoughts, Physical abuse, Sexual abuse, Sleep disturbances, Suicidal ideation, Other Eyes: No Blurry vision, No Decreased vision, No Double vision, No Dry eyes, No Excessive tearing, No Eye Pain, No Itchy Eyes, No Loss of vision, No Photophobia, No Scotomata, No Uses contacts, No Uses glasses, No Other HEENT: No: Heacaches, Visual Changes, Hearing change, Nasal congestion, Nasal discharge, Oral lesions, Sinus pain, Sore Throat, Epistaxis, Sneezing, Snoring, Tinnitus, Vertigo, Vocal changes, Other Respiratory: No: Cough, Hemoptysis, Orthopnea, Pleuritic Pain, Shortness of breath, SOB with excertion, Sputum Changes, Stridor, Tachypnea, Wheezing, Other Cardiovascular: yes Chest Pain; No Palpitations, No Orthopnea, No Paroxysmal Noc. Dyspnea, No Edema, No Lt Headedness, No Other Gastrointestinal: No Nausea, No Vomiting, No Abdominal Pain, No Diarrhea, No Constipation, No Melena, No Hematochezia, No Other Genitourinary: No Dysuria, No Frequency, No Incontinence, No Hematuria, No Retention, No Discharge, No Urgency, No Pain, No Flank Pain, No Other, No , No , No , No , No , No , No Musculoskeletal: No Gait Disturbance, No Joint Pain, No Joint Stiffness, No Joint Swelling, No Muscle Pain, No Muscular Weakness, No Pain In:, No Swelling In:, No Other Neurological: No Behavorial Changes, No Bowel/Bladder ControlChng, No Confusion, No Dizziness, No Gait Disturbance, No Headaches, No Impaired Coord/balance, No Memory Loss, No Numbness/Tingling, No Seizures, No Speech Problems, No Tremors, No Visual Changes, No Weakness, No Other Skin: No Dry Skin, No Eczema, No Hair Changes, No Lumps, No Mole Changes, No Mottling, No Nail Changes, No Pruritus, No Rash, No Skin Lesion Changes, No Other, No Acne Physical Exam General: Alert, Cooperative, No acute distress HEENT: Atraumatic, PERRLA Lungs: Clear to auscultation, Normal air movement Heart: S1S2, no gallops, no murmurs, other Abdomen: Normal bowel sounds, Soft Extremities: No clubbing, No edema Skin: No rashes, No breakdown, No significant lesion Neuro: Normal speech, Normal tone, Sensation intact Psych/Mental Status: Mental status NL, Mood NL Vitals Vitals Vital Signs Date Time Temp Pulse Resp B/P (MAP) Pulse Ox O2 Delivery O2 Flow Rate FiO2 09/16/21 07:00 97.9 87 98/61 (73) 97 Room Air 97.9 09/16/21 03:00 16 Labs Labs Laboratory Tests Test 09/15/21 19:15 09/15/21 21:20 09/16/21 00:38 09/16/21 01:15 White Blood Count 5.9 x10^3/uL (4.0-11.0) Red Blood Count 4.86 x10^6/uL (3.50-5.40) Hemoglobin 14.0 g/dL (12.0-15.5) Hematocrit 41.7 % (36.0-47.0) Mean Corpuscular Volume 86 fL (79-100) Mean Corpuscular Hemoglobin 29 pg (25-35) Mean Corpuscular Hemoglobin Concent 34 g/dL (31-37) Red Cell Distribution Width 13.9 % (11.5-14.5) Platelet Count 196 x10^3/uL (140-400) Neutrophils (%) (Auto) 57 % (31-73) Lymphocytes (%) (Auto) 29 % (24-48) Monocytes (%) (Auto) 12 % (0-9) Eosinophils (%) (Auto) 2 % (0-3) Basophils (%) (Auto) 1 % (0-3) Neutrophils # (Auto) 3.4 x10^3/uL (1.8-7.7) Lymphocytes # (Auto) 1.7 x10^3/uL (1.0-4.8) Monocytes # (Auto) 0.7 x10^3/uL (0.0-1.1) Eosinophils # (Auto) 0.1 x10^3/uL (0.0-0.7) Basophils # (Auto) 0.0 x10^3/uL (0.0-0.2) Sodium Level 141 mmol/L (136-145) Potassium Level 3.2 mmol/L (3.5-5.1) Chloride Level 101 mmol/L (98-107) Carbon Dioxide Level 32 mmol/L (21-32) Anion Gap 8 (6-14) Blood Urea Nitrogen 20 mg/dL (7-20) Creatinine 0.9 mg/dL (0.6-1.0) Estimated GFR (Cockcroft-Gault) 63.4 BUN/Creatinine Ratio 22 (6-20) Glucose Level 58 mg/dL (70-99) Calcium Level 9.2 mg/dL (8.5-10.1) Magnesium Level 1.9 mg/dL (1.8-2.4) Total Bilirubin 0.4 mg/dL (0.2-1.0) Aspartate Amino Transf (AST/SGOT) 18 U/L (15-37) Alanine Aminotransferase (ALT/SGPT) 22 U/L (14-59) Alkaline Phosphatase 70 U/L (46-116) Troponin I High Sensitivity < 4 ng/L (4-50) < 4 ng/L (4-50) 5 ng/L (4-50) RU-Mmi-J-Type Natriuretic Peptide 35 pg/mL (0-124) Total Protein 7.0 g/dL (6.4-8.2) Albumin 3.7 g/dL (3.4-5.0) Albumin/Globulin Ratio 1.1 (1.0-1.7) Urine Collection Type Unknown Urine Color Yellow Urine Clarity Clear Urine pH 5.0 (<5.0-8.0) Urine Specific [place] >=1.030 (1.000-1.030) Urine Protein Negative mg/dL (NEG-TRACE) Urine Glucose (UA) Negative mg/dL (NEG) Urine Ketones (Stick) 15 mg/dL (NEG) Urine Blood Negative (NEG) Urine Nitrite Negative (NEG) Urine Bilirubin Negative (NEG) Urine Urobilinogen Dipstick 0.2 mg/dL (0.2 mg/dL) Urine Leukocyte Esterase Trace (NEG) Urine RBC 0 /HPF (0-2) Urine WBC Occ /HPF (0-4) Urine Squamous Epithelial Cells Occ /LPF Urine Bacteria 0 /HPF (0-FEW) Test 09/16/21 04:02 09/16/21 04:15 Glucose (Fingerstick) 91 mg/dL (70-99) Sodium Level 140 mmol/L (136-145) Potassium Level 3.8 mmol/L (3.5-5.1) Chloride Level 105 mmol/L (98-107) Carbon Dioxide Level 26 mmol/L (21-32) Anion Gap 9 (6-14) Blood Urea Nitrogen 22 mg/dL (7-20) Creatinine 0.7 mg/dL (0.6-1.0) Estimated GFR (Cockcroft-Gault) 84.8 Glucose Level 88 mg/dL (70-99) Calcium Level 8.6 mg/dL (8.5-10.1) Magnesium Level 2.0 mg/dL (1.8-2.4) Troponin I High Sensitivity 5 ng/L (4-50) Laboratory Tests Test 09/15/21 19:15 09/15/21 21:20 09/16/21 00:38 09/16/21 01:15 White Blood Count 5.9 x10^3/uL (4.0-11.0) Red Blood Count 4.86 x10^6/uL (3.50-5.40) Hemoglobin 14.0 g/dL (12.0-15.5) Hematocrit 41.7 % (36.0-47.0) Mean Corpuscular Volume 86 fL (79-100) Mean Corpuscular Hemoglobin 29 pg (25-35) Mean Corpuscular Hemoglobin Concent 34 g/dL (31-37) Red Cell Distribution Width 13.9 % (11.5-14.5) Platelet Count 196 x10^3/uL (140-400) Neutrophils (%) (Auto) 57 % (31-73) Lymphocytes (%) (Auto) 29 % (24-48) Monocytes (%) (Auto) 12 % (0-9) Eosinophils (%) (Auto) 2 % (0-3) Basophils (%) (Auto) 1 % (0-3) Neutrophils # (Auto) 3.4 x10^3/uL (1.8-7.7) Lymphocytes # (Auto) 1.7 x10^3/uL (1.0-4.8) Monocytes # (Auto) 0.7 x10^3/uL (0.0-1.1) Eosinophils # (Auto) 0.1 x10^3/uL (0.0-0.7) Basophils # (Auto) 0.0 x10^3/uL (0.0-0.2) Sodium Level 141 mmol/L (136-145) Potassium Level 3.2 mmol/L (3.5-5.1) Chloride Level 101 mmol/L (98-107) Carbon Dioxide Level 32 mmol/L (21-32) Anion Gap 8 (6-14) Blood Urea Nitrogen 20 mg/dL (7-20) Creatinine 0.9 mg/dL (0.6-1.0) Estimated GFR (Cockcroft-Gault) 63.4 BUN/Creatinine Ratio 22 (6-20) Glucose Level 58 mg/dL (70-99) Calcium Level 9.2 mg/dL (8.5-10.1) Magnesium Level 1.9 mg/dL (1.8-2.4) Total Bilirubin 0.4 mg/dL (0.2-1.0) Aspartate Amino Transf (AST/SGOT) 18 U/L (15-37) Alanine Aminotransferase (ALT/SGPT) 22 U/L (14-59) Alkaline Phosphatase 70 U/L (46-116) Troponin I High Sensitivity < 4 ng/L (4-50) < 4 ng/L (4-50) 5 ng/L (4-50) EQ-Oey-V-Type Natriuretic Peptide 35 pg/mL (0-124) Total Protein 7.0 g/dL (6.4-8.2) Albumin 3.7 g/dL (3.4-5.0) Albumin/Globulin Ratio 1.1 (1.0-1.7) Urine Collection Type Unknown Urine Color Yellow Urine Clarity Clear Urine pH 5.0 (<5.0-8.0) Urine Specific [place] >=1.030 (1.000-1.030) Urine Protein Negative mg/dL (NEG-TRACE) Urine Glucose (UA) Negative mg/dL (NEG) Urine Ketones (Stick) 15 mg/dL (NEG) Urine Blood Negative (NEG) Urine Nitrite Negative (NEG) Urine Bilirubin Negative (NEG) Urine Urobilinogen Dipstick 0.2 mg/dL (0.2 mg/dL) Urine Leukocyte Esterase Trace (NEG) Urine RBC 0 /HPF (0-2) Urine WBC Occ /HPF (0-4) Urine Squamous Epithelial Cells Occ /LPF Urine Bacteria 0 /HPF (0-FEW) Test 09/16/21 04:02 09/16/21 04:15 Glucose (Fingerstick) 91 mg/dL (70-99) Sodium Level 140 mmol/L (136-145) Potassium Level 3.8 mmol/L (3.5-5.1) Chloride Level 105 mmol/L (98-107) Carbon Dioxide Level 26 mmol/L (21-32) Anion Gap 9 (6-14) Blood Urea Nitrogen 22 mg/dL (7-20) Creatinine 0.7 mg/dL (0.6-1.0) Estimated GFR (Cockcroft-Gault) 84.8 Glucose Level 88 mg/dL (70-99) Calcium Level 8.6 mg/dL (8.5-10.1) Magnesium Level 2.0 mg/dL (1.8-2.4) Troponin I High Sensitivity 5 ng/L (4-50) VTE Prophylaxis Ordered VTE Prophylaxis Devices: No VTE Pharmacological Prophylaxi: No Assessment/Plan Assessment/Plan acute chest pain Subtle Pneumonitis or pneumonia RLL on CT chest pneumoina with SIRS, sepsis S/p gastric bypass, nutrition adequate hypokalemia replaced hypothryoid, stable, recent labs RICARDO STOKES MD Sep 16, 2021 09:03
[2021-09-16 09:16] LABS: CHOLESTEROL/HDL RATIO 2.9
--- NOTE | 2021-09-16 09:59 | PDOC2 ---
MELBA LAMBERT PLASTERER MAINTENANCE 09/16/21 0959: CARDIAC CONSULT DATE OF CONSULT Date of Consult DATE: 09/16/21 TIME: 09:47 REASON FOR CONSULT Reason for Consult: Chest pain REFERRING PHYSICIAN Referring Physician: Marv SOURCE Source: Chart review, Patient HISTORY OF PRESENT ILLNESS HISTORY OF PRESENT ILLNESS This is a pleasant 60 yo female admitted for complains of chest pain and fast heart rate. Reports that she had her covid-19 booster vaccine yesterday and then started having fast HR at 120. Her chest pain is sharp started midback then went to midsternal region. No n/v, SOA. No fever or chills. No intractable coughing. No prior hx of CAD, VTE but does have significnat family hx of premature CAD. PAST MEDICAL HISTORY Cardiovascular: No pertinent hx Pulmonary: Bronchitis, Other ([place]) CENTRAL NERVOUS SYSTEM: Other (No pertinent history) GI: GERD Hepatobiliary: No pertinent hx Psych: No pertinent hx Musculoskeletal: low back pain, Osteoarthritis Infectious disease: No pertinent hx ENT: No pertinent hx Renal/: No pertinent hx Endocrine: Hypothyroidism Dermatology: No pertinent hx PAST SURGICAL HISTORY Past Surgical History: Appendectomy, Arthroscopy (left knee), Hysterectomy, Other (gastric bypass, cervical fusion) FAMILY HISTORY Family History: Coronary Artery Disease SOCIAL HISTORY Smoke: No ALCOHOL: none Drugs: None Lives: with Family CURRENT MEDICATIONS CURRENT MEDICATIONS Current Medications Medications (Trade) Dose Ordered Sig/Johnathon Route PRN Reason Start Time Stop Time Status Last Admin Dose Admin Sodium Chloride 1,000 ml @ 1,000 mls/hr 1X ONCE IV 09/15/21 19:00 09/15/21 19:59 DC 09/15/21 19:59 Fentanyl Citrate (Fentanyl 2ml Vial) 50 mcg 1X ONCE IVP 09/15/21 19:00 09/15/21 19:07 DC 09/15/21 20:00 Iohexol (Omnipaque 350 Mg/ml) 100 ml 1X ONCE IV 09/15/21 19:15 09/15/21 19:16 DC 09/15/21 20:20 Potassium Chloride (Klor-Con) 20 meq 1X ONCE PO 09/15/21 19:45 09/15/21 19:56 DC 09/15/21 20:07 Morphine Sulfate (Morphine Sulfate) 4 mg 1X ONCE IVP 09/15/21 21:15 09/15/21 21:16 DC 09/15/21 21:15 Ondansetron HCl (Zofran) 4 mg 1X ONCE IVP 09/15/21 21:30 09/15/21 21:31 DC 09/15/21 21:26 Sodium Chloride 1,000 ml @ 75 mls/hr 1X ONCE IV 09/15/21 22:15 09/16/21 11:34 09/16/21 00:19 Ketorolac Tromethamine (Toradol 15mg Vial) 15 mg 1X ONCE IVP 09/15/21 22:30 09/15/21 22:31 DC 09/15/21 22:42 Levothyroxine Sodium (Synthroid) 137 mcg DAILYAC PO 09/16/21 07:45 09/16/21 08:20 Pantoprazole Sodium (Protonix) 40 mg DAILYAC PO 09/16/21 08:30 09/16/21 08:20 Multivitamins (Thera M Plus) 1 tab DAILY PO 09/16/21 09:00 09/16/21 08:20 ALLERGIES ALLERGIES: Coded Allergies: aspirin (Verified Allergy, Intermediate, Hives, 07/26/16) doxycycline (Verified Allergy, Mild, Rash, 11/03/20) ROS Review of System 14 point ROS evaluated with pertinent positives noted per HPI PHYSICAL EXAM General: Alert, Oriented X3, Cooperative, No acute distress HEENT: Atraumatic, Mucous membr. moist/pink Lungs: Clear to auscultation, Normal air movement Heart: Regular rate (SR), Normal S1, Normal S2, No murmurs Abdomen: Soft, No tenderness Extremities: No cyanosis, No edema Skin: No breakdown, No significant lesion Neuro: Normal speech, Sensation intact Psych/Mental Status: Mental status NL, Mood NL MUSCULOSKELETAL: Osteoarthritic changes both hands VITALS/I&O VITALS/I&O: Vital Signs Date Time Temp Pulse Resp B/P (MAP) Pulse Ox O2 Delivery O2 Flow Rate FiO2 09/16/21 07:00 97.9 87 98/61 (73) 97 Room Air 97.9 09/16/21 03:00 16 I & O 09/15/21 09/15/21 09/16/21 15:00 23:00 07:00 Intake Total 275 ml Output Total 600 ml Balance -325 ml LABS Lab: Laboratory Tests Test 09/15/21 19:15 09/15/21 21:20 09/16/21 00:38 09/16/21 01:15 White Blood Count 5.9 x10^3/uL (4.0-11.0) Red Blood Count 4.86 x10^6/uL (3.50-5.40) Hemoglobin 14.0 g/dL (12.0-15.5) Hematocrit 41.7 % (36.0-47.0) Mean Corpuscular Volume 86 fL (79-100) Mean Corpuscular Hemoglobin 29 pg (25-35) Mean Corpuscular Hemoglobin Concent 34 g/dL (31-37) Red Cell Distribution Width 13.9 % (11.5-14.5) Platelet Count 196 x10^3/uL (140-400) Neutrophils (%) (Auto) 57 % (31-73) Lymphocytes (%) (Auto) 29 % (24-48) Monocytes (%) (Auto) 12 % (0-9) H Eosinophils (%) (Auto) 2 % (0-3) Basophils (%) (Auto) 1 % (0-3) Neutrophils # (Auto) 3.4 x10^3/uL (1.8-7.7) Lymphocytes # (Auto) 1.7 x10^3/uL (1.0-4.8) Monocytes # (Auto) 0.7 x10^3/uL (0.0-1.1) Eosinophils # (Auto) 0.1 x10^3/uL (0.0-0.7) Basophils # (Auto) 0.0 x10^3/uL (0.0-0.2) Sodium Level 141 mmol/L (136-145) Potassium Level 3.2 mmol/L (3.5-5.1) L Chloride Level 101 mmol/L (98-107) Carbon Dioxide Level 32 mmol/L (21-32) Anion Gap 8 (6-14) Blood Urea Nitrogen 20 mg/dL (7-20) Creatinine 0.9 mg/dL (0.6-1.0) Estimated GFR (Cockcroft-Gault) 63.4 BUN/Creatinine Ratio 22 (6-20) H Glucose Level 58 mg/dL (70-99) L Calcium Level 9.2 mg/dL (8.5-10.1) Magnesium Level 1.9 mg/dL (1.8-2.4) Total Bilirubin 0.4 mg/dL (0.2-1.0) Aspartate Amino Transferase (AST) 18 U/L (15-37) Alanine Aminotransferase (ALT) 22 U/L (14-59) Alkaline Phosphatase 70 U/L (46-116) Troponin I High Sensitivity < 4 ng/L (4-50) L < 4 ng/L (4-50) L 5 ng/L (4-50) ED-Rpe-P-Type Natriuretic Peptide 35 pg/mL (0-124) Total Protein 7.0 g/dL (6.4-8.2) Albumin 3.7 g/dL (3.4-5.0) Albumin/Globulin Ratio 1.1 (1.0-1.7) Urine Collection Type Unknown Urine Color Yellow Urine Clarity Clear Urine pH 5.0 (<5.0-8.0) Urine Specific [place] >=1.030 (1.000-1.030) Urine Protein Negative mg/dL (NEG-TRACE) Urine Glucose (UA) Negative mg/dL (NEG) Urine Ketones (Stick) 15 mg/dL (NEG) Urine Blood Negative (NEG) Urine Nitrite Negative (NEG) Urine Bilirubin Negative (NEG) Urine Urobilinogen Dipstick 0.2 mg/dL (0.2 mg/dL) Urine Leukocyte Esterase Trace (NEG) Urine RBC 0 /HPF (0-2) Urine WBC Occ /HPF (0-4) Urine Squamous Epithelial Cells Occ /LPF Urine Bacteria 0 /HPF (0-FEW) Test 09/16/21 04:02 09/16/21 04:15 Glucose (Fingerstick) 91 mg/dL (70-99) Sodium Level 140 mmol/L (136-145) Potassium Level 3.8 mmol/L (3.5-5.1) Chloride Level 105 mmol/L (98-107) Carbon Dioxide Level 26 mmol/L (21-32) Anion Gap 9 (6-14) Blood Urea Nitrogen 22 mg/dL (7-20) H Creatinine 0.7 mg/dL (0.6-1.0) Estimated GFR (Cockcroft-Gault) 84.8 Glucose Level 88 mg/dL (70-99) Calcium Level 8.6 mg/dL (8.5-10.1) Magnesium Level 2.0 mg/dL (1.8-2.4) Troponin I High Sensitivity 5 ng/L (4-50) Triglycerides Level 56 mg/dL (0-150) Cholesterol Level 155 mg/dL (0-200) LDL Cholesterol, Calculated 91 mg/dL (0-100) VLDL Cholesterol, Calculated 11 mg/dL (0-40) Non-HDL Cholesterol Calculated 102 mg/dL (0-129) HDL Cholesterol 53 mg/dL (40-60) Cholesterol/HDL Ratio 2.9 Laboratory Tests 09/15/21 19:15 Laboratory Tests 09/15/21 19:15 09/16/21 04:15 ASSESSMENT/PLAN ASSESSMENT/PLAN 1. Atypical chest pain: Trops nml. EKG SR with LAFB, No arrhythmias. doubt ACS 2. CAP 3. Hypothyroidism: on replacement 4. Hx of gastric bypass Recommendations 1. Baseline TTE, FLP 2. Antibiotic per PCP BREE CHILDERS MD 09/16/21 1413: CARDIAC CONSULT ASSESSMENT/PLAN ASSESSMENT/PLAN Patient seen and examined. Agree with TAIL END RIDER's assessment and plan. Chest pain with atypical features. Myocardial infarction has been ruled out. Continue current treatment for pneumonia. Check 2D echo to assess LV systolic function. Thank you for your consultation. MELBA LAMBERT APRN Sep 16, 2021 09:59 BREE CHILDERS MD Sep 16, 2021 14:13
[2021-09-16] MEDS ORDERED: AZITHROMYCIN 500 MG in IV NORMAL SALINE 250ML 250 ML IV ONE (10:00)
[2021-09-16] MEDS ORDERED: cefTRIAXone IV Push 1 GM VIAL. IVP ONE (10:00)
[2021-09-16 11:00] VITALS: BP 111/71
--- NOTE | 2021-09-16 13:26 | EKG ---
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
--- NOTE | 2021-09-16 13:26 | EKG ---
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
--- NOTE | 2021-09-16 15:15 | NUR ---
Discharge Note: VAN PRIETO [address] [facility] Discharge instructions and discharge home medications reviewed with Patient and a copy given. All questions have been answered and understanding verbalized. The following instructions and handouts were given: discharge instructions, meds list, RX, PNA education. Discontinued lines and drains: Peripheral IV intact. Patient discharged to Home or Self Care with Spouse via Ambulated at 1515.
--- NOTE | 2021-09-16 18:24 | CARD ---
MR#: [id number] Date of Study: 09/16/2021 Ordering Physician: MELBA LAMBERT, Referring Physician: MELBA LAMBERT Tech: Jeremy Coronado [facility] APPROVED REPORT EXAM: Two-dimensional and M-mode echocardiogram with Doppler and color Doppler. Other Information Quality : GoodHR: 72bpm Rhythm : NSR INDICATION Chest pressure RISK FACTORS Hyperlipidemia Family History 2D DIMENSIONS Left Atrium(2D)3.7 (1.6-4.0cm)IVSd0.8 (0.7-1.1cm) Aortic Root(2D)2.9 (2.0-3.7cm)LVDd4.8 (3.9-5.9cm) LVOT Diameter2.0 (1.8-2.4cm)PWd0.8 (0.7-1.1cm) LVDs2.9 (2.5-4.0cm)FS (%) 39.2 % SV76.0 ml Aortic Valve AoV Peak Chai.149.1cm/sAoV VTI30.7cm AO Peak GR.8.9mmHgLVOT Peak Chai.109.4cm/s AO Mean GR.5mmHgAVA (VMAX)2.21cm2 Mitral Valve MV E Ogxgnoch078.6cm/sMV E Peak Gr.4mmHg MV DECEL [id number] A Nuysrcyo43.6cm/s MV E Mean Gr.2mmHgE/A Ratio1.4 Pulmonary Valve PV Peak Rnkrmbgu490.6cm/s Tricuspid Valve TR P. Pxquuduj482wf/sTR Peak Gr.13mmHg Pulmonary Vein S1 Dzywpobo45.9cm/sD2 Sxonxppc17.1cm/s LEFT VENTRICLE The left ventricle is normal size. There is normal left ventricular wall thickness. The left ventricu lar systolic function is normal and the ejection fraction is within normal range. Left ventricular ej ection fraction is 55 to 60%. There is normal LV segmental wall motion. The left ventricular diastoli c function and filling is normal for age. No left ventricle thrombus noted on this study. There is no ventricular septal defect visualized. There is no left ventricular aneurysm. There is no mass noted in the left ventricle. RIGHT VENTRICLE The right ventricle is normal size. There is normal right ventricular wall thickness. The right ventr icular systolic function is normal. ATRIA The left atrium size is normal. The right atrium size is normal. The interatrial septum is intact wit h no evidence for an atrial septal defect or patent foramen ovale as noted on 2-D or Doppler imaging. AORTIC VALVE The aortic valve is normal in structure and function. Doppler and Color Flow revealed no significant aortic regurgitation. There is no significant aortic valvular stenosis. There is no aortic valvular v egetation. MITRAL VALVE The mitral valve is normal in structure and function. There is no evidence of mitral valve prolapse. There is no mitral valve stenosis. Doppler and Color Flow revealed no mitral valve regurgitation note d. TRICUSPID VALVE The tricuspid valve is normal in structure and function. Doppler and Color Flow revealed trace tricus pid regurgitation. The PA pressure was estimated at 18 mmHg. There is no tricuspid valve prolapse or vegetation. There is no tricuspid valve stenosis. PULMONIC VALVE The pulmonary valve is normal in structure and function. Doppler and Color Flow revealed no pulmonic valvular regurgitation. There is no pulmonic valvular stenosis. GREAT VESSELS The aortic root is normal in size. The ascending aorta is normal in size. The pulmonary artery is nor mal. The IVC is normal in size and collapses >50% with inspiration. PERICARDIAL EFFUSION There is no pleural effusion. There is no evidence of significant pericardial effusion. Critical Notification Critical Value: No <Conclusion> The left ventricle is normal size. The left ventricular systolic function is normal and the ejection fraction is within normal range. Left ventricular ejection fraction is 55 to 60%. Doppler and Color Flow revealed no significant aortic regurgitation. There is no significant aortic valvular stenosis. Doppler and Color Flow revealed no mitral valve regurgitation noted. Doppler and Color Flow revealed trace tricuspid regurgitation. The PA pressure was estimated at 18 mmHg. Signed by : Ga Yanez MD Electronically Approved : 09/16/2021 18:23:53
--- NOTE | 2021-09-21 00:05 | NUR ---
NaCl started at 19:59 on 09/15/21--stop time 20:59 on 09/15/21 NaCl started at 00:19 on 09/16--stop time 1030 on 09/16/21
== END 2021-09-16 15:15 | disposition home or self-care (01) ==
LOC: ER 18:26 → 6 SOUTH 22:14
PROVIDERS: ADMIT Internal Medicine; ATTEND Internal Medicine
DX: R07.89 Other chest pain (principal); A41.9 Sepsis, unspecified organism; J45.909 Unspecified asthma, uncomplicated; R42 Dizziness and giddiness; E87.6 Hypokalemia; M54.6 Pain in thoracic spine; E03.9 Hypothyroidism, unspecified; G47.33 Obstructive sleep apnea (adult) (pediatric); K21.9 Gastro-esophageal reflux disease without esophagitis; M19.90 Unspecified osteoarthritis, unspecified site; J18.9 Pneumonia, unspecified organism; Z98.84 Bariatric surgery status; Z90.710 Acquired absence of both cervix and uterus; Z79.899 Other long term (current) drug therapy; Z98.890 Other specified postprocedural states
CPT/HCPCS: 36415; 71045; 71275; 80048; 80053; 80061; 81001; 82962; 83735; 83880; 84484; 85025; 87086; 93005; 93306; 96361; 96365; 96375; 99285; G0378; J0456; J0696; J1885; J2270; J2405; J3010; J7030; J7050; Q9967; G0379

== ENCOUNTER → 2021-10-10 | Outpatient (CLI) | payer OTHER ==
[2021-09-16 11:00] VITALS: BP 111/71
[~2021-10-10] MED LIST changes: +AZIT250T6 PO; +BUPIVACAINE MPF 0.25% 10 ML VIAL. ONE; +IOHEXOL 180 MG/ML 10 ML VIAL. ONE; +LORA10TA68 PO; +methylPREDNISolone ACETATE 40 MG/ML VIAL. ONE
--- NOTE | 2021-10-10 15:46 | PDOC ---
Progress Note - Pain Clinic Date of Service: DOS: DATE: 10/10/21 TIME: 15:42 Diagnosis: Dx: Bilateral knee joint pain with osteoarthritis History or Present Illness: HPI: 60-year-old female returns for follow-up status post knee joint injection on the left July 04, 2021. Patient reports he did very well with about a 50% improvement for the first month and the pain began to return now she has pain in both knees right and left which is becoming much more noticeable with walking standing putting all of her weight on 1 leg or the other such as climbing stairs or stepping up on a step patient reports getting worse as time goes on better with sitting or laying down generally wakes her from sleep though if she lays on her side and her knees are contacting each other about every 2-3 hours she is waking at night from this patient reports that sharp pain tight in the posterior aspect of the knees burning and constant and again in both knees at this time patient reports her pain is an 8 on scale 10 is worse over the past week 7 on average 6 its least and is a 7 today. Patient describes constant burning pain as well in the knees and sometimes in the lower legs mostly on the left side. Patient reports no bowel or bladder incontinence or other complaints. Physical Exam: VS: Blood pressure is 109/78 pulse 81 respiration 16 temperature is 98.2 F and weight is 161 pounds. PE: PHYSICAL EXAMINATION: GENERAL: The patient is awake, alert, oriented, appropriate, very pleasant in demeanor HEENT: Shows normocephalic, atraumatic. Extraocular movements are intact and symmetrical. Patient wearing eyeglasses. NECK: Shows anterior throat supple without palpable lymphadenopathy noted. Swallow reflex symmetrical. CHEST: Shows normal on inspection. Breath sounds are clear bilaterally. HEART: Shows S1, S2 clear. No murmurs auscultated. ABDOMEN: Soft, nontender, nondistended. No palpable organomegaly is noted. BACK: Shows spine grossly in the midline. Normal-appearing cervical lordotic cu rvature. There is slightly increased thoracic kyphosis, some minor flattening of the lumbar lordotic curvature. EXTREMITIES: Lower extremities show deep tendon reflexes 2+ in the patellar and tendo calcaneus tendons. Motor exam is 5 on a scale of 5 with right dorsiflexion, extension, quadriceps and hamstring flexion and 5/5 on the left. Peripheral pulses are 2+ posterior tibial. No peripheral edema is noted bilaterally. Lower extremities are warm and dry to touch, equal in color and appearance. Patient's knees show good range of motion both without crepitus or ratcheting bilaterally but with some moderate tenderness with palpation over the medial collateral ligament and the anterior aspect of the inferior medial patella bilaterally. SKIN: Shows warm and dry, good turgor. No edema. No sores, rashes or bruising throughout. Procedure: Procedure: Options discussed with patient. Patient chart reviews her current medication regimen updated current review of systems updated today as well. We will proceed with bilateral intra-articular knee joint injection today with fluoroscopic guidance. Risks were discussed including but not limited to bleeding infection possibility of intravascular injection sequelae spread local acetic numbness side effects of steroid medication, exposure to fluoroscopy, and poor results regarding pain control. Patient understands wished to proceed. Patient will return to clinic in approximately 1 month or as necessary. Patient was counseled as to activity level as well side effects to be aware of. Medication Injected: Med Injected: Under sterile prep and drape patient in supine position using C-arm fluoroscopic guidance patient's bilateral knees were sterilely prepped and draped in usual fashion. Using C-arm fluoroscopy the medial aspect of the knee joint was identified and visualized and using 1% lidocaine 25-gauge needle of the area of the skin overlying the medial knee compartment was anesthetized. Using a 22-gauge quickie needle with stylette the joint was entered under direct visualization without difficulty. Stylet was removed at this time 2 cc of contrast was then injected with good spread within the knee joint itself without washout or uptake. At this time solution containing 3 cc each knee of 0.25 bupivacaine for total of 6 cc and a total of 120 mg Depo-Medrol, 60 mg per knee, were then injected. [place] were withdrawn and sterile bandages were applied. Patient tolerated procedure well and had no complications. Condition at Discharge: Condition at Discharge: Condition at discharge is stable, paced tolerated the procedure well and had no complications. NORA LEONARDO MD Oct 10, 2021 15:46
--- NOTE | 2021-10-10 15:47 | PDOC4 ---
Procedure Note: ICD 10 Code: ICD 10 Code: M2 5.563 M1 7.13 Procedure Note: Patient was consented for bilateral intra-articular knee joint injections with fluoroscopic guidance. Risks were discussed including but not limited to bleeding infection possibility of local anesthetic extravasation and sequelae, exposure fluoroscopy, side effects of steroid medication and poor results regarding pain control. Patient understands wished to proceed Under sterile prep and drape patient in supine position using C-arm fluoroscopic guidance patient's bilateral knees were sterilely prepped and draped in usual fashion. Using C-arm fluoroscopy the medial aspect of the knee joint was identified and visualized and using 1% lidocaine 25-gauge needle of the area of the skin overlying the medial knee compartment was anesthetized. Using a 22- gauge quickie needle with stylette the joint was entered under direct visualization without difficulty. Stylet was removed at this time 2 cc of contrast was then injected with good spread within the knee joint itself without washout or uptake. At this time solution containing 3 cc each knee of 0.25 bupivacaine for total of 6 cc and a total of 120 mg Depo-Medrol, 60 mg per knee, were then injected. [place] were withdrawn and sterile bandages were applied. Patient tolerated procedure well and had no complications. NORA LEONARDO MD Oct 10, 2021 15:47
== END | disposition home or self-care (01) ==
LOC: PNCL 14:34
PROVIDERS: ATTEND Anesthesiology
DX: M17.0 Bilateral primary osteoarthritis of knee (principal); I10 Essential (primary) hypertension; K21.9 Gastro-esophageal reflux disease without esophagitis; E03.9 Hypothyroidism, unspecified; Z79.899 Other long term (current) drug therapy; Z90.710 Acquired absence of both cervix and uterus; Z98.890 Other specified postprocedural states; Z88.1 Allergy status to other antibiotic agents; Z88.8 Allergy status to other drugs, medicaments and biological substances
CPT/HCPCS: 20610; 77002; J1030; J3490; Q9965